=== PATIENT | female | born 1935 | race Caucasian/White ===

== ENCOUNTER 2018-02-01 08:23 | Day surgery (SDC) | payer OTHER ==
[2018-01-29 13:04] LABS: Absolute Lymphocytes (CBC) 1.8 K/uL (0.7-4.9); Absolute Monocytes 0.6 K/uL (0.1-1.3); Absolute Neutrophil 5.6 K/uL (1.8-8.0); Basophils % 1.3 % (0-1.3); Eosinophils % 2.6 % (0-4.4); Hematocrit 36.9 % (36.0-45.0); Lymphocytes % 21.6 % (15.3-44.8); MCH 32.1 pg (27.0-35.0); MCV 99.1 fL (80-100); Monocytes % 7.5 % (3.3-12.3); RBC Red Blood Cell Count 3.72 M/uL (3.86-4.86)
[2018-01-29 13:13] LABS: Potassium 4.3 mEq/L (3.6-5.0)
--- NOTE | 2018-01-29 13:33 | RAD REPORT ---
EXAM DESCRIPTION: RAD - Chest Pa And Lat (2 Views) - 01/29/2018 1:12 pm CLINICAL HISTORY: Preop chest, inguinal hernia repair COMPARISON: February 2017 portable chest, January 2016 CT trauma gram TECHNIQUE: PA and lateral views of the chest were obtained. FINDINGS: The lungs are fibrotic. No acute infiltrates seen. Focal apical scarring on the right apex not clearly different from prior imaging. Mediastinal and hilar regions within normal limits. Hear t size and vasculature within normal limits. Patient has a pronounced left convex scoliotic curvature in the thoracic spine. There is accentuated mid thoracic kyphosis as well. Vertebroplasty changes ar e noted near the thoracolumbar junction. Additional 50% compression fracture deformities are seen in the lower thoracic spine near the vertebroplasty level as well is in the mid thoracic spine. These ch anges are new from 2016 but are not otherwise dated. Patient is diffusely osteopenic. No pleural effu sharona or pneumothorax seen. Aortic calcifications are present. Tortuosity is present accentuated by t he scoliosis. IMPRESSION: Scattered fibrotic lung pattern with no acute cardiopulmonary finding. Apical pleural and parenchymal scarring on the right are stable findings. Osteopenic and degenerative bony changes are present. Mid thoracic and lower thoracic compression fra cture deformities are present new from 2016 but not otherwise aged.
--- NOTE | 2018-01-29 13:37 | EKG ---
Test Date: 2018-01-29 Test Time: 12:18:36 Java Lead Developer: FOREST MEASUREMENT RESULTS: Intervals: Rate: 61 DC: 152 QRSD: 86 QT: 474 QTc: 477 [place]: P: 67 DC: 152 QRS: 77 T: 71 INTERPRETIVE STATEMENTS: Sinus rhythm with premature atrial complexes Otherwise normal ECG Compared to ECG 03/29/2017 23:50:34 Incomplete right bundle-branch block no longer present ST (T wave) deviation no longer present Electronically Signed On 01-29-18 13:36:38 CDT by Jared Bourgeois
[2018-02-01] MEDS ORDERED: Ringers Lactate 1,000 ML IV ONE (09:59)
[2018-02-01] MEDS ORDERED: CEFAZOLIN/SWI 1gm 1 GM/10 ML SYR ONE (10:00)
[2018-02-01] MEDS ORDERED: BUPIVACAINE 0.5% PF 10 ML VIAL ONE (11:06)
[2018-02-01] MEDS ORDERED: FENTANYL CITR 100 MCG/2 ML ONE (11:13)
[2018-02-01] MEDS ORDERED: PROPOFOL 200 MG/20 ML VIAL IV ONE (11:13)
[2018-02-01] MEDS ORDERED: EPHEDRINE SULF 50 MG/5 ML SYR ONE (11:35)
[2018-02-01] MEDS ORDERED: NS 0.9% VIAL 10 ML ONE (11:36)
[2018-02-01] MEDS ORDERED: MEPERIDINE HCL 50 MG/ML AMP ONE (12:17)
[2018-02-01] MEDS ORDERED: PROMETHAZINE 25 MG/ML VIAL ONE (12:23)
[2018-02-01] MEDS ORDERED: ONDANSETRON 4 MG/2 ML VIAL ONE (12:58)
[2018-02-01] MEDS ORDERED: HYDROCODONE/APAP 7.5/325 MG TAB ONE (14:04)
[2018-02-01 15:32] VITALS: BP 121/67; TEMP 97.2; O2SAT 97
--- NOTE | 2018-02-01 22:30 | OP ---
Date of Procedure: 02/01/2018 Surgeon: Ed Brooke MD Rehab Aid: NATALIE Morgan Preoperative Diagnosis: Left inguinal hernia. Postoperative Diagnosis: Left inguinal hernia. Procedure: Repair of left inguinal hernia. Estimated Blood Loss: Minimal. Specimen: Hernia sac and round ligament. Finding: As above. Anesthesia: General. Complications: None. Disposition: The patient tolerated the procedure in stable condition and taken to Recovery in good g eneral condition. Procedure In Detail: The patient was brought to the OR and placed in supine position. General anest hesia begun. The patient was prepped and draped in the usual sterile fashion. Marcaine 0.5% was leila lied locally. A 15-blade was used to make a 4 cm oblique incision between the pubic tubercle and the anterior iliac superior spine. Subcutaneous tissue divided. Felice fascia identified and divided. Aponeurosis of the internal mobilized, inferiorly explored to the shelving edge, then opened through the external ring. Ilioinguinal nerve was identified and retracted out of the field of dissection. Round ligament identified, mobilized, and skeletonized and a large indirect sac present. Both of th e hernia sac opened. There was no bowel inside it at this time. High ligation of the sac was done i n the standard fashion with 2-0 Prolene suture ligature and free hand tie. Round ligament segment wa s also resected and sent to Pathology. Then, Marlex mesh plug was placed in the internal ring and Ve rsaTack stapler used to secure the mesh, and then Onlay mesh was placed on the inguinal floor, secure d medially to the pubic tubercle superior to the conjoined tendon and inferior to the shelving edge, laterally to each other and then 2-0 Prolene was used to close the aponeurosis. A 3-0 chromic was us ed to approximate Felice fascia and maria g used to close skin. Sterile dressing was applied. The p atient was awakened and taken to Recovery in good general condition. Discharge Note: The patient will go to Day Surgery and home when stable. Disposition: Home. Condition: Stable. Discharge Instructions: Resume home medications and diet. Activity as tolerated. No heavy lifting. Remove outer dressing in 2 days. Shower. Keep wound clean and dry. Follow up in my office in a w kaibab. Call for appointment. Tylenol No. 3 one tablet p.o. q.4 p.r.n. pain. Ice pack as ordered. MERLENE/DANIEL Voice ID: [id number] Report ID: [id number]
== END 2018-02-01 15:20 | disposition home or self-care (01) ==
LOC: LAB 08:23
PROVIDERS: ATTEND Surgery
PROC: 0YU60JZ Supplement Left Inguinal Region with Synthetic Substitute, Open Approach (ICD-10-PCS; principal; 2018-02-01 11:30)
DX: K40.90 Unilateral inguinal hernia, without obstruction or gangrene, not specified as recurrent (principal); Z85.3 Personal history of malignant neoplasm of breast; Z88.2 Allergy status to sulfonamides
CPT/HCPCS: 36415; 49505; 71046; 80048; 85025; 88302; 93005; J0690; J2175; J2405; J2550; J3010

== ENCOUNTER 2018-05-02 18:44 | Inpatient (IN) | payer OTHER ==
--- OUTSIDE RECORDS SUMMARY | 2018-05-02 18:47 | XMS REPORT | Continuity of Care Document ---
:1935 Author Organization Interface Problems Problem Status Onset Classification Date Comments Source Date Reported UNK Active [facility] 7 Breast Resolved Problem 03/30/2017 [facility] cancer Medications Medication Details Route Status Patient Ordering Order Source Instructions Provider Date propofol Route: IV, Inactive (ANES) Drug form: Lupe Garner INJ, ONCE, Stop date: 03/27/17 8:07:00 CDT ondansetron Route: IV, Inactive (ANES) Drug form: 017 [facility] INJ, ONCE, Stop date: 03/27/17 7:53:00 CDT lidocaine Route: IV, Inactive (ANES) Drug form: [facility] INJ, ONCE, Stop date: 03/27/17 7:53:00 CDT fentaNYL Route: IV, Inactive (ANES) Drug form: Lupe [facility] INJ, ONCE, Stop date: 03/27/17 7:53:00 CDT ceFAZolin Route: IV, Inactive (ANES) Drug form: 017 [facility] INJ, ONCE, Stop date: 03/27/17 7:53:00 CDT Calcium 1,000 mL, Inactive Chloride Rate: 25 017 [facility] 0.0014 MEQ/ML ml/hr, / Potassium Infuse Chloride 0.004 over: 40 MEQ/ML / hr, Route: Sodium IV, Dosing Chloride 0.103 Weight MEQ/ML / 48.324 kg, Sodium Lactate Total 0.028 MEQ/ML Volume: Injectable 1,000, Solution Start date: 03/27/17 7:09:00 CDT, Duration: 30 day, Stop date: 04/26/17 7:08:00 CDT LR 1000 mL INJ Route: IV, Inactive (ANES) Total [facility] Volume: 1,000, Start date: 03/27/17 7:08:00 CDT, Stop date: 03/27/17 8:08:00 CDT acetaminophen- 1 tab, PO, Active codeine #3 as needed 017 [facility] salmon =1 spray, Active calcitonin 200 NASAL, 017 [facility] UNT/ACTUAT Daily, 0 Nasal [place] Refill(s) Allergies, Adverse Reactions, Alerts Substance Category Reaction Severity Reaction Status Date Comments Source type Reported Tape Assertion Allergy to Active substance [facility] Immunizations Immunization Date Given Site Status Last Updated Comments Source Results Order Name Results Value Reference Date Interpretation Comments Source Range CHEM PANEL eGFR 80 03/27 Result Comment: The eGFR is calculated using the CKD-EPI formula. In most young, healthy individuals the eGFR will be >90 mL/ min/1.73m2. The eGFR declines with age. An eGFR of 60-89 may be normal in mL/min/1.7 /2016 some populations, particularly the elderly, for whom the CKD-EPI formula has not been extensively validated. Use of the eGFR is not recommended in the following populations: [facility] 3m2 Individuals with unstable creatinine concentrations, including patients and those with serious co-morbid conditions. Patients with extremes in muscle mass or diet. The data above are obtained from the National Kidney Disease Education Program (NKDEP) which additionally recommends that when the eGFR is used in patients with extremes of body mass index for purposes of drug dosing, the eGFR should be multiplied by the estimated BMI. CHEM PANEL AGAP 8.6 meq/L 10.0 - 03/27 MH 20.0 [facility] CHEM PANEL Calcium Lvl 9.1 mg/dL 8.5 - 10.5 03/27 [facility] CHEM PANEL BUN 22 mg/dL 7 - 22 03/27 [facility] CHEM PANEL Glucose Lvl 98 mg/dL 70 - 99 03/27 [facility] CHEM PANEL Potassium 3.6 meq/L 3.5 - 5.1 03/27 MH Lvl /2016 [facility] CHEM PANEL Sodium Lvl 139 meq/L 135 - 145 03/27 [facility] CHEM PANEL Creatinine 0.71 mg/dL 0.50 - 03/27 MH Lvl 1.40 [facility] CHEM PANEL CO2 26 meq/L 24 - 32 03/27 [facility] CHEM PANEL Chloride Lvl 108 meq/L 95 - 109 03/27 [facility] Spine Spine lumbar Patient Name: ZAC PRATER EDWIN 03/27 - lumbar 2 2 or 3 views /2016 [place] or 3 views DX : 1935; Age: 81 years Female DX MR: [id number] Read by: Bonita Houston MD Dictated Date/time: 03/27/17 08:08 Study: Spine lumbar 2 or 3 views DX 03/27/2017 7:53 AM CDT Electronically Signed by: Bonita Houston MD 03/27/17 08 :09 FINAL REPORT CLINICAL INDICATION: compression fx/l1 kyphoplasty - fluoro time=[id number]/ Dose=32.73mGy/[id number]#4/Or1 COMPARISON: None FINDINGS: Limited fluoroscopic images provided for kyphoplasty of the L1 vertebral body. Refer to operative report for details. SL: [id number] HEMATOLOGY PTT 25.6 s 22.9 - 03/26 MH 35.8 /2016 [facility] HEMATOLOGY PT 12.6 s 12.0 - 03/26 MH 14.7 [facility] INR 0.92 0.85 - 03/26 MH 1.17 [facility] RDW 13.6 % 11.5 - 03/26 MH 14.5 /2016 [facility] MCHC 33.2 g/dL 32.0 - 03/26 MH 36.0 /2016 [facility] MPV 8.5 fL 7.4 - 10.4 03/26 /2016 [facility] Platelet 320 K/CMM 133 - 450 03/26 MH /2016 [facility] Hct 41.1 % 36.0 - 03/26 MH 48.0 /2016 [facility] Hgb 13.6 g/dL 12.0 - 03/26 MH 16.0 /2016 [facility] RBC 4.16 M/CMM 4.20 - 03/26 MH 5.40 /2016 [facility] MCH 32.8 pg 27.0 - 03/26 MH 31.0 /2016 [facility] MCV 98.6 fL 80.0 - 03/26 MH 98.0 /2016 [facility] WBC 9.1 K/CMM 3.7 - 10.4 03/26 /2016 [facility] Monocytes # 0.8 K/CMM 0.0 - 0.8 03/26 [facility] Lymphocytes 1.7 K/CMM 1.0 - 5.5 03/26 MH # /2016 [facility] Segs-Bands # 6.4 K/CMM 1.5 - 8.1 03/26 [facility] HEMATOLOGY Basophils 1.1 % 0.0 - 1.0 03/26 [facility] HEMATOLOGY Eosinophils 2.0 % 0.0 - 4.0 03/26 [facility] HEMATOLOGY Monocytes 8.5 % 2.0 - 12.0 03/26 [facility] HEMATOLOGY Eosinophils 0.2 K/CMM 0.0 - 0.5 03/26 MH # /2017 [facility] HEMATOLOGY Basophils # 0.1 K/CMM 0.0 - 0.2 03/26 [facility] HEMATOLOGY Segs 70.2 % 45.0 - 03/26 MH 75.0 /2016 [facility] HEMATOLOGY Lymphocytes 18.2 % 20.0 - 03/26 40.0 /2016 [facility] URINE AND UA Mucus Few /LPF None Seen 03/26 STOOL /LPF [facility] URINE AND UA CaOx Ignacia Moderate None Seen 03/26 STOOL /HPF /HPF [facility] URINE AND UA Hyal Cast 1 /LPF 0 - 2 03/26 [facility] URINE AND UA Color Celine 03/26 [facility] URINE AND UA WBC 1 /HPF 0 - 5 03/26 [facility] URINE AND UA RBC 3 /HPF 0 - 2 03/26 STOOL [facility] URINE AND UA 2.0 mg/dL 0.1 - 1.0 03/26 [facility] Urobilinogen /2016 URINE AND UA Nitrite Negative Negative 03/26 STOOL [facility] (03/26/17 10:57 AM) URINE AND UA Turbidity Clear Clear 03/26 STOOL [facility] (03/26/17 10:57 AM) URINE AND UA Spec Grav 1.026 <=1.030 03/26 [facility] URINE AND UA Glucose Negative Negative 03/26 [facility] mg/dL mg/dL URINE AND UA Protein 30 mg/dL Negative 03/26 [facility] mg/dL URINE AND UA pH 5.0 5.0 - 8.0 03/26 [facility] URINE AND UA Sq Epi Occasional Few /LPF 03/26 STOOL /LPF [facility] URINE AND UA Leuk Est Negative Negative 03/26 STOOL /2016 [facility] (03/26/17 10:57 AM) URINE AND UA Bili Negative Negative 03/26 [facility] *NA* (03/26/17 10:57 AM) URINE AND UA Ketones Trace Negative 03/26 [facility] mg/dL mg/dL /2016 [facility] URINE AND UA Blood Small Negative 03/26 STOOL /2016 [facility] *ABN* (03/26/17 10:57 AM) Vital Signs Vital Sign Value Date Comments Source Systolic (mm Hg) 134 03/27/2017 [facility] Diastolic (mm Hg) 60 03/27/2017 [facility] Systolic (mm Hg) 135 03/27/2017 [facility] Diastolic (mm Hg) 59 03/27/2017 [facility] Respitory Rate 14 03/27/2017 [facility] Systolic (mm Hg) 135 03/27/2017 [facility] Diastolic (mm Hg) 55 03/27/2017 [facility] Respitory Rate 16 03/27/2017 [facility] Respitory Rate 16 03/27/2017 [facility] Heart Rate 74 03/26/2017 [facility] Temperature Oral (F) 98 F 03/26/2017 [facility] BMI Calculated 20.81 03/26/2017 [facility] Weight 48.324 03/26/2017 [facility] Height 152.4 cm 03/26/2017 [facility] Encounters Location Location Encounter Encounter Reason Attending ADM DC Status Source Details Type Number For Provider Date Date Visit [id number] Aneudy 03/27 03/27 [facility] /2016 [facility] Procedures Procedure Code Date Perfomer Comments Source Cataract surgery [id number] [facility] Hernia repair [id number] [facility] Lumpectomy of [id number] [facility] breast
--- OUTSIDE RECORDS SUMMARY | 2018-05-02 18:47 | XMS REPORT | Summary of Care ---
:1935 Author Organization [facility] Address [address] [address], [place] [address]- Encounter HQ Jamie(MAIKOL) [id number] Date(s): 03/27/17 - 03/27/17 [facility] [address] [place] [address]- [phone] Discharge Disposition: Home or Self Care Attending Physician: Aneudy Morrison MD Referring Physician: Aneudy Morrison MD Vital Signs Most recent to oldest 1 2 3 [Reference Range]: Height 152.4 cm (03/26/17 9:52 AM) Temperature Oral [96.4-99.1 98 DegF DegF] (03/26/17 9:52 AM) Blood Pressure [90-140/60-90 134/60 mmHg 135/59 mmHg 135/55 mmHg mmHg] (03/27/17 8:45 AM) (03/27/17 8:30 AM) (03/27/17 8:15 AM) Respiratory Rate [14-20 BRMIN] 14 BRMIN 16 BRMIN 16 BRMIN (03/27/17 8:30 AM) (03/27/17 8:15 AM) (03/27/17 8:00 AM) Peripheral Pulse Rate [60-100 74 bpm bpm] (03/26/17 9:52 AM) Weight 48.324 kg (03/26/17 9:52 AM) Body Mass Index 20.81 m2 (03/26/17 9:52 AM) Problem List Condition Effective Dates Status Health Status Informant Breast cancer(Confirmed) Resolved Allergies, Adverse Reactions, Alerts Substance Reaction Severity Status Tape Active Medications acetaminophen-codeine #3 1 tab, PO, as needed Start Date: 03/26/17 Status: Orderedcalcitonin 200 intl units/inh nasal spray =1 spray, NASAL, Daily, 0 Refill(s) Start Date: 03/26/17 Status: OrderedceFAZolin (ANES) Route: IV, Drug form: INJ, ONCE, Stop date: 03/27/17 7:53:00 CDT Start Date: 03/27/17 Stop Date: 03/27/17 Status: CompletedfentaNYL (ANES) Route: IV, Drug form: INJ, ONCE, Stop date: 03/27/17 7:53:00 CDT Start Date: 03/27/17 Stop Date: 03/27/17 Status: CompletedLactated Ringers Injection IV 1000 mL 1,000 mL, Rate: 25 ml/hr, Infuse over: 40 hr, Route: IV, Dosing Weight 48.324 kg , Total Volume: 1,000, Start date: 03/27/17 7:09:00 CDT, Duration: 30 day, Stop date: 04/26/17 7:08:00 CDT Start Date: 03/27/17 Stop Date: 03/27/17 Status: Discontinuedlidocaine (ANES) Route: IV, Drug form: INJ, ONCE, Stop date: 03/27/17 7:53:00 CDT Start Date: 03/27/17 Stop Date: 03/27/17 Status: CompletedLR 1000 mL INJ (ANES) Route: IV, Total Volume: 1,000, Start date: 03/27/17 7:08:00 CDT, Stop date: 8:08:00 CDT Start Date: 03/27/17 Stop Date: 03/27/17 Status: Completedondansetron (ANES) Route: IV, Drug form: INJ, ONCE, Stop date: 03/27/17 7:53:00 CDT Start Date: 03/27/17 Stop Date: 03/27/17 Status: Completedpropofol (ANES) Route: IV, Drug form: INJ, ONCE, Stop date: 03/27/17 8:07:00 CDT Start Date: 03/27/17 Stop Date: 03/27/17 Status: Completed Results ELECTROLYTES Most recent to oldest [Reference Range]: 1 Sodium Lvl [135-145 mEq/L] 139 mEq/L (03/27/17 6:26 AM) Potassium Lvl [3.5-5.1 mEq/L] 3.6 mEq/L (7/28/17 6:26 AM) Chloride Lvl [95-109 mEq/L] 108 mEq/L (03/27/17 6:26 AM) CO2 [24-32 mEq/L] 26 mEq/L (03/27/17 6:26 AM) AGAP [10.0-20.0 mEq/L] 8.6 mEq/L *LOW* (03/27/17 6:26 AM) CHEM PANEL Most recent to oldest [Reference Range]: 1 Creatinine Lvl [0.50-1.40 mg/dL] 0.71 mg/dL (03/27/17 6:26 AM) eGFR 80 mL/min/1.73m2 1 *NA* (03/27/17 6: AM) BUN [7-22 mg/dL] 22 mg/dL (03/27/17 6:26 AM) Glucose Lvl [70-99 mg/dL] 98 mg/dL (03/27/17 6:26 AM) Calcium Lvl [8.5-10.5 mg/dL] 9.1 mg/dL (03/27/17 6:26 AM) 1Result Comment: The eGFR is calculated using the CKD-EPI formula. In most young , healthy individualsthe eGFR will be >90 mL/min/1.73m2. The eGFR declines with age. An eGFR of 60-89 may be normal in some populations, particularly the elderly, for whom the CKD-EPI formula has not been extensively validated. Use of the eGFR is not recommended in the following populations: Individuals with unstable creatinine concentrations, including patients and those with serious co-morbid conditions. Patients with extremes in muscle mass or diet. The data above are obtained from the National Kidney Disease Education Program ( NKDEP) which additionally recommends that when the eGFR is used in patients with extremes of body mass index for purposesof drug dosing, the eGFR should be multiplied by the estimated BMI.URINE AND STOOL Most recent to oldest [Reference Range]: 1 UA Turbidity [Clear] Clear (03/26/17 10:57 AM) UA Color Celine *NA* (03/26/17 10:57 AM) UA pH [5.0-8.0] 5.0 (03/26/17 10:57 AM) UA Spec Grav [<=1.030] 1.026 (03/26/17 10:57 AM) UA Glucose [Negative mg/dL] Negative mg/dL *NA* (03/26/17 10:57 AM) UA Blood [Negative] Small *ABN* (03/26/17 10:57 AM) UA Ketones [Negative mg/dL] Trace mg/dL *ABN* (03/26/17 10:57 AM) UA Protein [Negative mg/dL] 30 mg/dL *ABN* (03/26/17 10:57 AM) UA Urobilinogen [0.1-1.0 mg/dL] 2.0 mg/dL *HI* (03/26/17 10:57 AM) UA Bili [Negative] Negative *NA* (03/26/17 10:57 AM) UA Leuk Est [Negative] Negative (03/26/17 10:57 AM) UA Nitrite [Negative] Negative (03/26/17 10:57 AM) UA WBC [0-5 /HPF] 1 /HPF (03/26/17 10:57 AM) UA RBC [0-2 /HPF] 3 /HPF *HI* (03/26/17 10:57 AM) UA Sq Epi [Few /LPF] Occasional /LPF *NA* (03/26/17 10:57 AM) UA Hyal Cast [0-2 /LPF] 1 /LPF (03/26/17 10:57 AM) UA CaOx Ignacia [None Seen /HPF] Moderate /HPF *ABN* (03/26/17 10:57 AM) UA Mucus [None Seen /LPF] Few /LPF *NA* (03/26/17 10:57 AM) HEMATOLOGY Most recent to oldest [Reference Range]: 1 WBC [3.7-10.4 K/CMM] 9.1 K/CMM (03/26/17 10:57 AM) RBC [4.20-5.40 M/CMM] 4.16 M/CMM *LOW* (03/26/17 10:57 AM) Hgb [12.0-16.0 g/dL] 13.6 g/dL (03/26/17 10:57 AM) Hct [36.0-48.0 %] 41.1 % (03/26/17 10:57 AM) MCV [80.0-98.0 fL] 98.6 fL *HI* (03/26/17 10:57 AM) MCH [27.0-31.0 pg] 32.8 pg *HI* (03/26/17 10:57 AM) MCHC [32.0-36.0 g/dL] 33.2 g/dL (03/26/17 10:57 AM) RDW [11.5-14.5 %] 13.6 % (03/26/17 10:57 AM) Platelet [133-450 K/CMM] 320 K/CMM (03/26/17 10:57 AM) MPV [7.4-10.4 fL] 8.5 fL (03/26/17 10:57 AM) Segs [45.0-75.0 %] 70.2 % (03/26/17 10:57 AM) Lymphocytes [20.0-40.0 %] 18.2 % *LOW* (03/26/17 10:57 AM) Monocytes [2.0-12.0 %] 8.5 % (03/26/17 10:57 AM) Eosinophils [0.0-4.0 %] 2.0 % (03/26/17 10:57 AM) Basophils [0.0-1.0 %] 1.1 % *HI* (03/26/17 10:57 AM) Segs-Bands # [1.5-8.1 K/CMM] 6.4 K/CMM (03/26/17 10:57 AM) Lymphocytes # [1.0-5.5 K/CMM] 1.7 K/CMM (03/26/17 10:57 AM) Monocytes # [0.0-0.8 K/CMM] 0.8 K/CMM (03/26/17 10:57 AM) Eosinophils # [0.0-0.5 K/CMM] 0.2 K/CMM (03/26/17 10:57 AM) Basophils # [0.0-0.2 K/CMM] 0.1 K/CMM (03/26/17 10:57 AM) PT [12.0-14.7 seconds] 12.6 seconds (03/26/17 10:57 AM) INR [0.85-1.17] 0.92 (03/26/17 10:57 AM) PTT [22.9-35.8 seconds] 25.6 seconds (03/26/17 10:57 AM) Immunizations No data available for this section Procedures Procedure Date Related Diagnosis Body Site Cataract surgery Hernia repair Lumpectomy of breast Social History Social History Type Response Substance Abuse Use: None. Alcohol Never Smoking Status Never smoker; Lives with someone who smokes; Cigarette Smoking Last 365 Days No; Reg Smoking Cessation Counseling No Assessment and Plan No data available for this section
[2018-05-02] MEDS ORDERED: MORPHINE 4 MG/ML SYR ONE (19:34)
[2018-05-02] MEDS ORDERED: ONDANSETRON 4 MG/2 ML VIAL ONE ×2 (19:34→21:02)
[2018-05-02 20:05] LABS: Absolute Lymphocytes (CBC) 1.1 K/uL (0.7-4.9); Absolute Monocytes 0.6 K/uL (0.1-1.3); Absolute Neutrophil 9.3 K/uL (1.8-8.0); Basophils % 0.7 % (0-1.3); Eosinophils % 1.2 % (0-4.4); Lymphocytes % 9.7 % (15.3-44.8); MCH 33.3 pg (27.0-35.0); MCV 99.1 fL (80-100); MPV 8.2 fL (7.6-11.3); Monocytes % 5.1 % (3.3-12.3); RBC Red Blood Cell Count 3.53 M/uL (3.86-4.86)
[2018-05-02] MEDS ORDERED: HYDROMORPHONE HCL 1 MG/ML INJ ONE ×2 (20:10→20:25)
[2018-05-02 20:13] LABS: Protime INR 0.95
[2018-05-02 20:22] LABS: Albumin 3.6 g/dL (3.4-5.0); Bilirubin Total 0.5 mg/dL (0.2-1.0); Potassium 3.7 mmol/L (3.5-5.1); Protein, Total 7.3 g/dL (6.4-8.2)
--- NOTE | 2018-05-02 21:11 | RAD REPORT ---
EXAM DESCRIPTION: RAD - Pelvis - 05/02/2018 8:30 pm CLINICAL HISTORY: Pelvic pain status post fall FINDINGS: Moderately to markedly displaced subcapital fracture involves the left femur. No dislocati on is seen
--- NOTE | 2018-05-02 21:11 | RAD REPORT ---
EXAM DESCRIPTION: RAD - Hip Left 2 View - 05/02/2018 8:30 pm CLINICAL HISTORY: Left hip pain status post injury FINDINGS: Moderately to markedly displaced subcapital fracture involves the left femur. No dislocati on is seen
[2018-05-02] MEDS ORDERED: MAGNESIUM HYDROXIDE 8% 30 ML PO PRN (21:14)
--- NOTE | 2018-05-02 21:15 | EDPHYS ---
Physician Documentation [facility] Name: Piper Magaña Age: 82 yrs Sex: Female : 1935 Arrival Date: 05/02/2018 Time: 18:46 Bed 15 Private MD: ED Physician Louis Berrios HPI: 05/03 05:28 This 82 yrs old Female presents to ER via Ambulatory with complaints of Fall tw4 Injury. 05:28 Details of fall: The patient fell from an upright position, while standing. Onset: The tw4 symptoms/episode began/occurred today. Associated injuries: The patient sustained left hip. Severity of symptoms: At their worst the symptoms were moderate, in the emergency department the symptoms are unchanged. The patient has not experienced similar symptoms in the past. Historical: - Allergies: 05/02 18:52 Sulfa (Sulfonamide Antibiotics); hj - Home Meds: 18:52 acetaminophen-codeine 300-30 mg Oral tab 1 tab as needed [Active]; hj - PMHx: 18:52 Osteoporosis; spine compression fx; hj - PSHx: 18:52 back surg; hj - Immunization history:: Adult Immunizations unknown. - Social history:: Smoking status: Patient/guardian denies using tobacco, Patient/guardian denies using alcohol. - Immunization history: Last tetanus immunization: unknown. - Ebola Screening: : Patient negative for fever greater than or equal to 101.5 degrees Fahrenheit, and additional compatible Ebola Virus Disease symptoms Patient denies exposure to infectious person Patient denies travel to an Ebola-affected area in the 21 days before illness onset. ROS: 05/03 05:28 Constitutional: Negative for fever, chills, and weight loss, Eyes: Negative for injury, tw4 pain, redness, and discharge, Cardiovascular: Negative for chest pain, palpitations, and edema, Respiratory: Negative for shortness of breath, cough, wheezing, and pleuritic chest pain, Abdomen/GI: Negative for abdominal pain, nausea, vomiting, diarrhea, and constipation, Back: Negative for injury and pain. Neuro: Negative for headache, weakness, numbness, tingling, and seizure. Exam: 05:28 Head/Face: Normocephalic, atraumatic. Chest/axilla: Normal chest wall appearance and tw4 motion. Nontender with no deformity. No lesions are appreciated. Cardiovascular: Regular rate and rhythm with a normal S1 and S2. No gallops, murmurs, or rubs. Normal PMI, no JVD. No pulse deficits. Respiratory: Lungs have equal breath sounds bilaterally, clear to auscultation and percussion. No rales, rhonchi or wheezes noted. No increased work of breathing, no retractions or nasal flaring. Abdomen/GI: Soft, non-tender, with normal bowel sounds. No distension or tympany. No guarding or rebound. No evidence of tenderness throughout. 05:28 Constitutional: The patient appears in obvious distress, moderately distressed, in obvious pain. 05:28 Musculoskeletal/extremity: Extremities: noted in the left leg: decreased ROM, deformity, pain, Circulation is intact in all extremities. Severe pain noted. Compartment Syndrome exam of affected extremity: is normal. no numbness, no tingling, no sensation deficit, no palor, no weak pulses. Vital Signs: 05/02 18:52 BP 162 / 106; Pulse 81; Resp 18; Temp 98.1(TE); Pulse Ox 100% on R/A; Weight 44.45 kg; hj Height 5 ft. 0 in. (152.40 cm); Pain 10/10; 19:15 BP 144 / 124; Pulse 80; Resp 18; Pulse Ox 98% on R/A; ea 20:30 BP 145 / 72; Pulse 75; Resp 18; Pulse Ox 98% ; ea 21:30 BP 137 / 68; Pulse 86; Resp 18; Pulse Ox 98% ; ea 22:47 BP 145 / 70; Pulse 78; Resp 18; Temp 97.8; Pulse Ox 98% ; Pain 5/10; ea 18:52 Body Mass Index 19.14 (44.45 kg, 152.40 cm) Ideal Coma Score: 18:52 Eye Response: spontaneous(4). Verbal Response: oriented(5). Motor Response: obeys commands(6). Total: 15. 19:15 Eye Response: spontaneous(4). Verbal Response: oriented(5). Motor Response: obeys ea commands(6). Total: 15. 20:30 Eye Response: spontaneous(4). Verbal Response: oriented(5). Motor Response: obeys ea commands(6). Total: 15. 21:30 Eye Response: spontaneous(4). Verbal Response: oriented(5). Motor Response: obeys ea commands(6). Total: 15. 22:47 Eye Response: spontaneous(4). Verbal Response: oriented(5). Motor Response: obeys ea commands(6). Total: 15. Trauma Score (Adult): 18:52 Eye Response: spontaneous(1); Verbal Response: oriented(1); Motor Response: obeys hj commands(2); Systolic BP: > 89 mm Hg(4); Respiratory Rate: 10 to 29 per min(4); Marcia Score: 15; Trauma Score: 12 MDM: 19:07 Patient medically screened. tw4 05/03 05:28 Differential diagnosis: closed head injury, contusion, fracture. Data reviewed: vital tw4 signs, nurses notes. Data interpreted: alarm security or surveillance monitor: rhythm is normal sinus rhythm, Pulse oximetry: Interpretation: normal. Counseling: I had a detailed discussion with the patient and/or guardian regarding: the historical points, exam findings, and any diagnostic results supporting the discharge/admit diagnosis, the presence of at least one elevated blood pressure reading (>120/80) during this emergency department visit. Medication response: morphine partially relieved the patient's pain. Response to treatment: the patient's symptoms have markedly improved after treatment, and as a result, I will admit patient, administer pain medication, Dilaudid. Physician consultation: Bruna Summers MD and will see patient in inpatient room, would like consultation with Dr. Cali/W DR CE HERNANDEZ WHO WILL SEE THE PT IN THE AM. 05/02 19:29 Order name: CBC with Diff tw4 05/02 19:29 Order name: CMP tw4 05/02 19:29 Order name: PT-INR tw4 05/02 19:29 Order name: Ptt, Activated tw4 05/02 21:17 Order name: CBC with Automated Diff EDMS 05/02 21:17 Order name: CBC with Automated Diff EDMS 05/02 21:17 Order name: Comprehensive Metabolic Panel EDMS 05/02 21:17 Order name: Comprehensive Metabolic Panel EDMS 05/02 21:17 Order name: Magnesium EDMS 05/02 21:17 Order name: Magnesium EDMS 05/02 21:17 Order name: Phosphorus EDMS 05/02 21:17 Order name: Phosphorus EDMS 05/02 21:17 Order name: Protime (+INR) EDMS 05/02 21:17 Order name: Protime (+INR) EDMS 05/02 19:31 Order name: Pelvis XRAY tw4 05/02 19:31 Order name: Hip Left 2 View XRAY tw4 05/02 21:17 Order name: CONS Physician Consult EDMS 05/02 21:17 Order name: NPO EDMS 05/02 21:17 Order name: PTT, Activated Partial Thromb EDMS 05/02 21:17 Order name: PTT, Activated Partial Thromb EDMS Administered Medications: 05/02 19:47 Drug: morphine 4 mg Route: IVP; Site: left antecubital; ea 20:05 Follow up: Response: No adverse reaction; Pain is unchanged, physician notified ea 19:48 Drug: Zofran 4 mg Route: IVP; Site: left antecubital; ea 20:27 Follow up: Response: No adverse reaction ea 20:11 Drug: Dilaudid 1 mg Route: IVP; Site: left antecubital; ea 20:55 Follow up: Response: No adverse reaction; Pain is unchanged, physician notified ea 21:00 Drug: Dilaudid 1 mg Route: IVP; Site: left forearm; ea 22:26 Follow up: Response: No adverse reaction; Pain is decreased ea 21:00 Drug: Zofran 4 mg Route: IVP; Site: left forearm; ea 22:26 Follow up: Response: No adverse reaction; Marked relief of symptoms ea Disposition: 05/02/18 21:14 Hospitalization ordered by Bruna Summers for Inpatient Admission. Preliminary diagnosis is Intertrochanteric fracture of femur. - Bed requested for Telemetry/MedSurg (Inpatient). - Status is Inpatient Admission. ea - Condition is Stable. - Problem is new. - Symptoms have improved. UTI on Admission? No Signatures: Dispatcher [employer] EDMN Lenny Moore RN RN la1 Vikash Anne RN Heidi Arana RN RN ea Wadley, Terrence, MD MD tw4 Corrections: (The following items were deleted from the chart) 21:24 21:14 Hospitalization Ordered by Bruna Summers MD for Inpatient Admission. Preliminary la1 diagnosis is Intertrochanteric fracture of femur. Bed requested for Telemetry/MedSurg (Inpatient). Status is Inpatient Admission. Condition is Stable. Problem is new. Symptoms have improved. UTI on Admission? No. tw4 23:12 21:24 05/02/2018 21:14 Hospitalization Ordered by Bruna Summers MD for Inpatient ea Admission. Preliminary diagnosis is Intertrochanteric fracture of femur. Bed requested for Telemetry/MedSurg (Inpatient). Status is Inpatient Admission. Condition is Stable. Problem is new. Symptoms have improved. UTI on Admission? No. la1
--- NOTE | 2018-05-02 21:15 | ER ---
Nurse's Notes [facility] Name: Piper Magaña Age: 82 yrs Sex: Female : 1935 Arrival Date: 05/02/2018 Time: 18:46 Bed 15 Private MD: Diagnosis: Intertrochanteric fracture of femur Presentation: 05/02 18:46 Presenting complaint: EMS states: was at home sitting on a couch, when she stood up, pt hj fell and hurt her L side, L hip, L knee; 22 g L forearm, fentanyl, 50 mcg; 1814; 2nd dose 1824;. Transition of care: patient was not received from another setting of care. Onset of symptoms was May 02, 2018. Risk Assessment: Do you want to hurt yourself or someone else? Patient reports no desire to harm self or others. Initial Sepsis Screen: Does the patient meet any 2 criteria? No. Patient's initial sepsis screen is negative. Does the patient have a suspected source of infection? No. Patient's initial sepsis screen is negative. Care prior to arrival: Medication(s) given: fentanyl 100 mcg; total dose; IV initiated. 22 GA, in the left forearm. 18:46 Method Of Arrival: Ambulatory 18:46 Acuity: TRACY 4 18:46 Mechanism of Injury: Fall. Trauma event details: Injury occurred in the county [facility], Injury occurred: at home. Injury occurred: May 02, 2018. Triage Assessment: 18:55 General: Appears in no apparent distress. uncomfortable, Behavior is cooperative, hj appropriate for age, crying. Pain: Complains of pain in L leg, L hip, L knee. Trauma Activation: Not Applicable Physician: ED Physician; Name: ; Notified At: ; Arrived At: Physician: General Surgeon; Name: ; Notified At: ; Arrived At: Physician: Radiology; Name: ; Notified At: ; Arrived At: Physician: Respiratory; Name: ; Notified At: ; Arrived At: Physician: Lab; Name: ; Notified At: ; Arrived At: Historical: - Allergies: 18:52 Sulfa (Sulfonamide Antibiotics); hj - Home Meds: 18:52 acetaminophen-codeine 300-30 mg Oral tab 1 tab as needed [Active]; - PMHx: 18:52 Osteoporosis; spine compression fx; hj - PSHx: 18:52 back surg; hj - Immunization history:: Adult Immunizations unknown. - Social history:: Smoking status: Patient/guardian denies using tobacco, Patient/guardian denies using alcohol. - Immunization history: Last tetanus immunization: unknown. - Ebola Screening: : Patient negative for fever greater than or equal to 101.5 degrees Fahrenheit, and additional compatible Ebola Virus Disease symptoms Patient denies exposure to infectious person Patient denies travel to an Ebola-affected area in the 21 days before illness onset. Screenin:52 Abuse screen: Denies threats or abuse. Denies injuries from another. Nutritional hj screening: No deficits noted. Tuberculosis screening: No symptoms or risk factors identified. Fall Risk None identified. Primary Survey: 18:46 A: Airway: patent, No supplemental oxygen in use on arrival. Oral cavity: clear, gag hj reflex present, Trachea midline. Breathing/Chest: Respiratory pattern: regular, Respiratory effort: spontaneous, unlabored, Breath sounds: clear, diminished, Chest inspection: symmetrical rise and fall of the chest. Circulation: Cardiac rhythm: sinus rhythm Heart tones present. Pulses: palpable right radial artery, right posterior tibial artery, left radial artery and left posterior tibial artery. Skin color: pink, Skin temperature: warm, dry. Disability Alert. 18:55 Reassessment Airway Airway Patent Oxygen No O2 Oral cavity Clear +Gag reflex Trachea hj Midline Breathing/Chest Respiratory pattern Regular Respiratory effort Spontaneous Unlabored Breath sounds Clear Chest inspection Symmetrical Circulation Heart rhythm Sinus rhythm Heart tones Present Pulses Palpable Color [place] Temperature Warm Dry Disability Alert. Secondary Survey: 18:46 HEENT: No deficits noted. Gastrointestinal: No deficits noted. : No signs and/or hj symptoms were reported regarding the genitourinary system. Musculoskeletal: Reports pain in L knee, L hip, L leg. Assessment: 18:46 Reassessment: see triage for assessment;. hj 19:05 General: Appears uncomfortable, Behavior is restless. Pain: Complains of pain in pelvis ea and medial aspect of left thigh Pain radiates to left leg Pain currently is 9 out of 10 on a pain scale. Quality of pain is described as aching. Neuro: Level of Consciousness is awake, alert, obeys commands, Oriented to person, place, time, situation. Cardiovascular: Heart tones S1 S2 present Patient's skin is warm and dry. Respiratory: Airway is patent Respiratory effort is even, unlabored, Respiratory pattern is regular, symmetrical, Breath sounds are clear bilaterally. GI: No signs and/or symptoms were reported involving the gastrointestinal system. : No signs and/or symptoms were reported regarding the genitourinary system. Derm: Skin is pink, warm \T\ dry. Musculoskeletal: Reports pain in left leg. Musculoskeletal: Capillary refill < 3 seconds, in bilateral toes. Reports. 19:50 Reassessment: Patient and/or family updated on plan of care and expected duration. Pain ea level reassessed. Patient is alert, oriented x 3, equal unlabored respirations, skin warm/dry/pink. Pt complaining of pain, provider notified, medication order obtained. 20:20 Reassessment: Patient and/or family updated on plan of care and expected duration. Pain ea level reassessed. Patient is alert, oriented x 3, equal unlabored respirations, skin warm/dry/pink. Pt complaining of pain, provider notified, medication order obtained, medication administered, pt tolerated well. 21:00 Reassessment: Patient and/or family updated on plan of care and expected duration. Pain ea level reassessed. Pt complaining of pain, provider notified, medication order obtained, medication administered. Pt tolerated well. 22:28 Reassessment: Patient and/or family updated on plan of care and expected duration. Pain ea level reassessed. Patient is alert, oriented x 3, equal unlabored respirations, skin warm/dry/pink. Report called to Carol on fourth floor. Vital Signs: 18:52 BP 162 / 106; Pulse 81; Resp 18; Temp 98.1(TE); Pulse Ox 100% on R/A; Weight 44.45 kg; Height 5 ft. 0 in. (152.40 cm); Pain 10/10; 19:15 BP 144 / 124; Pulse 80; Resp 18; Pulse Ox 98% on R/A; ea 20:30 BP 145 / 72; Pulse 75; Resp 18; Pulse Ox 98% ; ea 21:30 BP 137 / 68; Pulse 86; Resp 18; Pulse Ox 98% ; ea 22:47 BP 145 / 70; Pulse 78; Resp 18; Temp 97.8; Pulse Ox 98% ; Pain 5/10; ea 18:52 Body Mass Index 19.14 (44.45 kg, 152.40 cm) [place] Coma Score: 18:52 Eye Response: spontaneous(4). Verbal Response: oriented(5). Motor Response: obeys hj commands(6). Total: 15. 19:15 Eye Response: spontaneous(4). Verbal Response: oriented(5). Motor Response: obeys ea commands(6). Total: 15. 20:30 Eye Response: spontaneous(4). Verbal Response: oriented(5). Motor Response: obeys ea commands(6). Total: 15. 21:30 Eye Response: spontaneous(4). Verbal Response: oriented(5). Motor Response: obeys ea commands(6). Total: 15. 22:47 Eye Response: spontaneous(4). Verbal Response: oriented(5). Motor Response: obeys ea commands(6). Total: 15. Trauma Score (Adult): 18:52 Eye Response: spontaneous(1); Verbal Response: oriented(1); Motor Response: obeys hj commands(2); Systolic BP: > 89 mm Hg(4); Respiratory Rate: 10 to 29 per min(4); Marcia Score: 15; Trauma Score: 12 ED Course: 18:46 Patient arrived in ED. hj 18:46 Patient has correct armband on for positive identification. Bed in low position. Call light in reach. Side rails up X2. 18:46 Patient maintains SpO2 saturation greater than 95% on room air. hj 18:46 Thermoregulation: warm blanket given to patient. hj 18:51 Triage completed. hj 18:53 Arm band placed on. hj 19:00 Vikash Anne RN is Primary Nurse. hj 19:00 Report given to ANSHUL Gordon. hj 19:07 Louis Berrios MD is Attending Physician. tw4 19:45 Benjamin cath inserted, using sterile technique, 16 Fr., by me, balloon inflated, to ea gravity drainage, urine specimen collected. 19:47 Heidi Long, ANSHUL is Primary Nurse. ea 19:55 Initial lab(s) drawn, by me, sent to lab. cc 20:27 X-ray completed. Portable x-ray completed in exam room. Patient tolerated procedure jb2 well. 20:28 Pelvis XRAY In Process Unspecified. EDMS 20:28 Hip Left 2 View XRAY In Process Unspecified. EDMS 21:13 Bruna Summers MD is Hospitalizing Provider. tw4 21:46 No provider procedures requiring assistance completed. Patient admitted, IV remains in ea place. Administered Medications: 19:47 Drug: morphine 4 mg Route: IVP; Site: left antecubital; ea 20:05 Follow up: Response: No adverse reaction; Pain is unchanged, physician notified ea 19:48 Drug: Zofran 4 mg Route: IVP; Site: left antecubital; ea 20:27 Follow up: Response: No adverse reaction ea 20:11 Drug: Dilaudid 1 mg Route: IVP; Site: left antecubital; ea 20:55 Follow up: Response: No adverse reaction; Pain is unchanged, physician notified ea 21:00 Drug: Dilaudid 1 mg Route: IVP; Site: left forearm; ea 22:26 Follow up: Response: No adverse reaction; Pain is decreased ea 21:00 Drug: Zofran 4 mg Route: IVP; Site: left forearm; ea 22:26 Follow up: Response: No adverse reaction; Marked relief of symptoms ea Intake: 22:47 PO: 0ml; Total: 0ml. ea Output: 22:47 Urine: 575ml (Benjamin); Total: 575ml. ea Outcome: 21:14 Decision to Hospitalize by Provider. tw4 22:26 Condition: stable ea 22:26 Instructed on the need for admit. 22:27 Patient's length of stay in the Emergency Department was greater than 2 hours. pt ea admittedPatient's length of stay extended due to 22:29 Admitted to Med/surg accompanied by tech, room 407, with oxygen, with chart, Report ea called to Carol LANDERS 23:12 Patient left the ED. ea Signatures: Dispatcher [employer] EDIL Donato Monahan [place] cc Joaquin, Henry, RN RN hj Antunez, Elena, RN RN ea Wadley, Terrence, MD MD tw4 Corrections: (The following items were deleted from the chart) 22:49 21:30 BP 137 / 68; Pulse 86bpm; Resp 18bpm; Pulse Ox 98% RA; ea ea 22:49 22:27 PO 0, ea ea
[2018-05-02 23:06] VITALS: BMI 19.7
[2018-05-02] MEDS: NA CHLORIDE 0.9% 1,000 ML IV SCH (23:27)
[2018-05-02] MEDS: ONDANSETRON 4 MG/2 ML VIAL IV PRN (23:33)
[2018-05-03 04:25] LABS: Absolute Lymphocytes (CBC) 0.6 K/uL (0.7-4.9); Absolute Monocytes 0.6 K/uL (0.1-1.3); Absolute Neutrophil 13.4 K/uL (1.8-8.0); Basophils % 0.2 % (0-1.3); Lymphocytes % 4.1 % (15.3-44.8); MCH 33.7 pg (27.0-35.0); MCV 98.8 fL (80-100); MPV 8.3 fL (7.6-11.3); Monocytes % 4.1 % (3.3-12.3); RBC Red Blood Cell Count 3.44 M/uL (3.86-4.86)
[2018-05-03 05:09] LABS: Albumin 3.5 g/dL (3.4-5.0); Bilirubin Total 0.7 mg/dL (0.2-1.0); Phosphorus 3.6 mg/dL (2.5-4.9); Potassium 4.6 mmol/L (3.5-5.1); Protein, Total 7.4 g/dL (6.4-8.2)
[2018-05-03] MEDS: HYDROMORPHONE HCL 1 MG/ML INJ IV PRN ×4 (05:14→19:49)
[2018-05-03] MEDS: ONDANSETRON 4 MG/2 ML VIAL IV PRN ×3 (05:15→19:53)
[2018-05-03 05:44] LABS: Blood Morphology Comment NOT SEEN (NOT SEEN); Platelet Estimate ADEQ
--- NOTE | 2018-05-03 07:41 | P.HP ---
Certification for Inpatient Patient admitted to: Inpatient With expected LOS: >2 Midnights Patient will require the following post-hospital care: None Practitioner: I am a practitioner with admitting privileges, knowledge of patient current condition, hospital course, and medical plan of care. Services: Services provided to patient in accordance with Admission requirements found in Title 42 Section 412.3 of the Code of Federal Regulations Patient History Date of Service: 05/02/18 Reason for admission: Displaced subcapital fracture of the left femur History of Present Illness: Patient is an 82-year-old female came into the hospital after falling from the couch. She was taking a nap when she heard the phone ring. She got up from the couch to and fell. She suffered the fracture was not able to get up. She suffered a compression fracture a year ago and at that time was diagnosed with osteoporosis. She does not have many illnesses. She does not take any medications. 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 She tends to be very active at her age. She should be low risk from any cardiopulmonary complications during the perioperative period. Allergies Sulfa (Sulfonamide Antibiotics) Allergy (Intermediate, Verified 05/02/18 23:29) Hives/Rash adhesive tape Allergy (Verified 05/02/18 23:29) Rash Home Medications: NK [No Home Meds] 05/02/18 - Past Medical/Surgical History Has patient received pneumonia vaccine in the past: No Diabetic: No -: Breast Cancer (RT) -: Lumpectomy (1997) -: Hernia Repair ( Rt.Groin) - Family History Father Medical History: Other (see notes) Notes: Lung problems Mother Medical History: Heart disease, Diabetes - Social History Smoking Status: Never smoker Alcohol use: No CD- Drugs: No Caffeine use: Yes Place of Residence: Home Review of Systems 10-point ROS is otherwise unremarkable Physical Examination - Vital Signs Temperature: 97.8 F Blood Pressure: 123/58 Pulse: 97 Respirations: 16 Pulse Ox (%): 100 - Physical Exam General: Alert, In no apparent distress, Oriented x3 HEENT: Atraumatic, PERRLA, Mucous membr. moist/pink, EOMI, Sclerae nonicteric Neck: Supple, 2+ carotid pulse no bruit, No LAD, Without JVD or thyroid abnormality Respiratory: Clear to auscultation bilaterally, Normal air movement Cardiovascular: Regular rate/rhythm, Normal S1 S2, No murmurs Gastrointestinal: Normal bowel sounds, Soft and benign, Non-distended, No tenderness Musculoskeletal: No clubbing, No swelling, Tenderness (Left hip) Integumentary: No rashes Neurological: Normal gait, Normal speech, Normal strength at 5/5 x4 extr, Normal tone, Normal affect Lymphatics: No axilla or inguinal lymphadenopathy - Studies Laboratory Data (last 24 hrs) 05/02/18 19:55: PT 11.2, INR 0.95, APTT 24.1 L 05/02/18 19:55: Sodium 142, Potassium 3.7, BUN 26 H, Creatinine 0.90, Glucose 111 H, Total Bilirubin 0.5, AST 22, ALT 18, Alkaline Phosphatase 106 05/02/18 19:55: WBC 11.2 H, Hgb 11.7 L, Hct 35.0 L, Plt Count 286 Assessment & Plan - Problems (Diagnosis) (1) Subcapital fracture of left femur Current Visit: Yes Status: Acute (2) History of breast cancer Current Visit: Yes Status: Acute - Plan Plan: 1. IV hydration 2. NPO after midnight 3. Patient is low risk from any cardiopulmonary complications. Patient is stable for surgery 4. Monitor hemodynamics closely 5. PT eval after surgery 6. Rehab eval after surgery 7. GI and DVT prophylaxis - Advance Directives Does patient have a Living Will: Yes Does patient have a Durable POA for Healthcare: No - Code Status/Comfort Care Code Status Assessed: Yes Code Status: Full Code Critical Care: No Time Spent Managing PTS Care (In Minutes): 50
[2018-05-03] MEDS ORDERED: PNEUMOCOCCAL VACCINE 0.5 ML IMVAC ONE (08:00)
[2018-05-03] MEDS: NA CHLORIDE 0.9% 1,000 ML IV SCH (09:07)
[2018-05-03] MEDS ORDERED: CEFAZOLIN/SWI 1gm 1 GM/10 ML SYR IVP SCH (09:15)
--- NOTE | 2018-05-03 09:25 | P.CNS ---
Date of Consult: 05/03/18 Requesting Physician: Bruna Summers Chief Complaint: Displaced subcapital fracture of the left femur History of Present Illness: 82Y/O FEMALE UP FROM COUCH TO ANSWER PHONE AND FELL TO BREAK LEFT HIP, SUBCAPITAL NECK FRACTURE. NO HISTORY OF PRIOR FALLS;AWAKENED BY PHONE. BROUGHT TO [facility] ED AND ADMITTED TO BED REST. Allergies Sulfa (Sulfonamide Antibiotics) Allergy (Intermediate, Verified 05/02/18 23:29) Hives/Rash adhesive tape Allergy (Verified 05/02/18 23:29) Rash Home Medications: NK [No Home Meds] 05/02/18 - Past Medical/Surgical History Diabetic: No -: Breast Cancer (RT) -: Lumpectomy (1997) -: Hernia Repair ( Rt.Groin) - Family History Father Medical History: Other (see notes) Notes: Lung problems Mother Medical History: Heart disease, Diabetes - Social History Smoking Status: Never smoker Alcohol use: No CD- Drugs: No Caffeine use: Yes Place of Residence: Home Review of Systems 10-point ROS is otherwise unremarkable Physical Examination Temp Pulse Resp BP Pulse Ox 97.8 F 97 H 16 123/58 L 100 05/03/18 08:03 05/03/18 08:03 05/03/18 08:03 05/03/18 08:03 05/03/18 08:03 General: Alert, Oriented x3 HEENT: Atraumatic, Normocephalic Neck: Supple Respiratory: Normal air movement Cardiovascular: Normal pulses Capillary refill: <2 Seconds Gastrointestinal: Soft and benign, Non-distended Musculoskeletal: Tenderness (MARKED TENDERNESS LEFT HIP WITH ANY MOVEMENT) Integumentary: No rashes, No breakdown Neurological: Sensation intact Urinary: Benjamin catheter External genitalia: Deferred Rectal: Deferred Laboratory Data (last 24 hrs) 05/02/18 19:55: PT 11.2, INR 0.95, APTT 24.1 L 05/02/18 19:55: Sodium 142, Potassium 3.7, BUN 26 H, Creatinine 0.90, Glucose 111 H, Total Bilirubin 0.5, AST 22, ALT 18, Alkaline Phosphatase 106 05/02/18 19:55: WBC 11.2 H, Hgb 11.7 L, Hct 35.0 L, Plt Count 286 Imagings Data: LEFT SUBCAPITAL PROXIMAL FEMUR FRACTRE, DISPLACED - Problems (1) Subcapital fracture of left femur Current Visit: Yes Status: Acute Plan: SCHEDULED FOR INSERTION OF LEFT HIP PROSTHESIS AT ~ 12 N, 05/04/2018. DISCUSSED RISKS AND BENEFITS WITH ALL QUESTIONS ANSWERED. PATIENT AND DAUGHTER HAVE ELECTED TO PROCEED PLANNED. NPO AFTER MIDNIGHT. REGULAR DIET NOW. OK FOR LOVENOX INJECTION THIS AM, WITHHOLD TOMORROW.
--- NOTE | 2018-05-03 13:40 | P.PN ---
Subjective Date of Service: 05/03/18 Chief Complaint: Displaced subcapital fracture of the left femur Pt seen and examined at bedside. Patient currently has no complaints to offer overnight. Case discussed with orthopedics. Plans to have a surgery tomorrow morning. NPO after midnight. Review of Systems 10-point ROS is otherwise unremarkable Physical Examination - Vital Signs Temperature: 98.5 F Blood Pressure: 163/86 Pulse: 73 Respirations: 16 Pulse Ox (%): 97 - Physical Exam General: Alert, In no apparent distress HEENT: Atraumatic, PERRLA, EOMI Neck: Supple, JVD not distended Respiratory: Clear to auscultation bilaterally, Normal air movement Cardiovascular: Regular rate/rhythm, Normal S1 S2 Gastrointestinal: Normal bowel sounds, No tenderness Musculoskeletal: No tenderness Integumentary: No rashes Neurological: Normal speech, Normal tone, Normal affect Lymphatics: No axilla or inguinal lymphadenopathy - Studies Laboratory Data (last 24 hrs) 05/02/18 19:55: PT 11.2, INR 0.95, APTT 24.1 L 05/02/18 19:55: Sodium 142, Potassium 3.7, BUN 26 H, Creatinine 0.90, Glucose 111 H, Total Bilirubin 0.5, AST 22, ALT 18, Alkaline Phosphatase 106 05/02/18 19:55: WBC 11.2 H, Hgb 11.7 L, Hct 35.0 L, Plt Count 286 Medications List Reviewed: Yes Assessment And Plan - Current Problems (Diagnosis) (1) Subcapital fracture of left femur Current Visit: Yes Status: Acute Plan: Patient with left femur fracture. -orthopedics consulted. Appreciated recommendations at this time -patient scheduled for procedure tomorrow. -PT consulted postprocedure. Qualifiers: Encounter type: initial encounter (2) History of breast cancer Current Visit: Yes Status: Chronic Discharge Plan: [facility] Plan to discharge in: 48 Hours - Code Status/Comfort Care Code Status Assessed: Yes Critical Care: No
[2018-05-03] MEDS ORDERED: ENOXAPARIN 30 MG/0.3 ML SQ SCH (18:00)
[2018-05-04] MEDS: NA CHLORIDE 0.9% 1,000 ML IV SCH ×3 (01:18→18:02)
[2018-05-04] MEDS: HYDROMORPHONE HCL 1 MG/ML INJ IV PRN ×2 (04:00→08:57)
[2018-05-04] MEDS: ENOXAPARIN 40 MG/0.4 ML SQ SCH (07:45)
--- NOTE | 2018-05-04 11:43 | P.PN ---
Subjective Date of Service: 05/04/18 Chief Complaint: Displaced subcapital fracture of the left femur Pt seen and examined at bedside. Patient currently has no complaints to offer overnight. Case discussed with orthopedics. Plans to have a surgery today. Has been NPO after midnight. C/o Of pain this AM in the right hip Review of Systems 10-point ROS is otherwise unremarkable Physical Examination - Vital Signs Temperature: 98.4 F Blood Pressure: 132/62 Pulse: 71 Respirations: 16 Pulse Ox (%): 97 - Physical Exam General: Alert, In no apparent distress HEENT: Atraumatic, PERRLA, EOMI Neck: Supple, JVD not distended Respiratory: Clear to auscultation bilaterally, Normal air movement Cardiovascular: Regular rate/rhythm, Normal S1 S2 Gastrointestinal: Normal bowel sounds, No tenderness Musculoskeletal: No tenderness Integumentary: No rashes Neurological: Normal speech, Normal tone, Normal affect Lymphatics: No axilla or inguinal lymphadenopathy - Studies Medications List Reviewed: Yes Assessment And Plan - Current Problems (Diagnosis) (1) Subcapital fracture of left femur Current Visit: Yes Status: Acute Plan: Patient with left femur fracture. -orthopedics consulted. Appreciated recommendations at this time -patient scheduled for procedure today -PT consulted postprocedure. -Inpatient Rehab consult Placed Qualifiers: Encounter type: initial encounter (2) History of breast cancer Current Visit: Yes Status: Chronic - Plan Awaiting Surgical Procedure today. Discharge Plan: Other Plan to discharge in: 48 Hours - Code Status/Comfort Care Code Status Assessed: Yes Critical Care: No
[2018-05-04] MEDS ORDERED: TRANEXAMIC ACID 1,000 MG in NA CHLORIDE 0.9% 50 ML IV ONE (12:00)
[2018-05-04] MEDS ORDERED: Ringers Lactate 1,000 ML IV ONE ×2 (12:05→14:25)
[2018-05-04] MEDS ORDERED: FENTANYL CITR 250 MCG/5 ML ONE (12:11)
[2018-05-04] MEDS ORDERED: ROCURONIUM 50 MG/5 ML VIAL IV ONE (12:11)
[2018-05-04] MEDS ORDERED: PROPOFOL 200 MG/20 ML VIAL IV ONE (12:11)
[2018-05-04] MEDS ORDERED: CEFAZOLIN/SWI 1gm 1 GM/10 ML SYR ONE (12:14)
--- NOTE | 2018-05-04 12:18 | EKG ---
Test Date: 2018-05-04 Test Time: 09:45:35 Business Support Manager: VARSHA MEASUREMENT RESULTS: Intervals: Rate: 93 TX: 136 QRSD: 92 QT: 388 QTc: 482 [place]: P: 73 TX: 136 QRS: 43 T: 53 INTERPRETIVE STATEMENTS: Sinus rhythm with premature atrial complexes Otherwise normal ECG Compared to ECG 01/29/2018 12:18:36 No significant changes Electronically Signed On 05-04-18 12:17:52 CDT by Yaakov Rogers
[2018-05-04] MEDS ORDERED: ONDANSETRON HCL 40 MG/20 ML VIAL ONE (12:31)
[2018-05-04] MEDS: BUPIVACA 0.25%/EPI 0.0005% MDV 50 ML VIAL ONE ×2 (13:30→14:59)
[2018-05-04] MEDS ORDERED: EPHEDRINE SULF 50 MG/10 ML SYR ONE (13:31)
[2018-05-04] MEDS ORDERED: KETOROLAC 30 MG/ML INJ ONE (14:53)
--- NOTE | 2018-05-04 15:22 | P.BOP ---
Preoperative diagnosis: Left subcapital femoral neck fracture Postoperative diagnosis: SAME Primary procedure: INSERTION OF UNIPOLAR HIP PROSTHESIS FOR LEFT HIP FEMORAL NECK FRACTURE Nephrologist: Deborah Miller ([facility]ECESSARY 1ST ASSIST SERVICES THROUGHOUT CASE) Estimated blood loss: 150 mL Specimen: FEMORAL HEAD AND CALCAR FRAGMENTS PLUS SOFT TISSUES DEBRIDED Findings: SUBCAPITAL FRACTRE PROX. FEMORAL NECK Anesthesia: General Complications: None Implants: MELO HIP BALL 47mm;CENTALIZER8.5;SPACER+0;SUMMIT [id number] CEMENTED Fluids & blood products: LEONARDO SIMPLEX, 2 BATCHES IN CEMENT GUN; INJ. 30mL0.25 %MARCAINEwEPI Transferred to: Recovery Room Condition: Good
[2018-05-04] MEDS ORDERED: HYDROCODONE/APAP 5/325 MG TAB PO PRN (15:38)
--- NOTE | 2018-05-04 16:00 | RAD REPORT ---
EXAM DESCRIPTION: RAD - Pelvis - 05/04/2018 3:38 pm CLINICAL HISTORY: Postop left hip prosthesis COMPARISON: May 02 TECHNIQUE: AP imaging of the pelvis was obtained. FINDINGS: Bipolar prosthesis has been placed on the left. Hardware is in good position. Skin maria g are present lateral to the hip joint. No suspicious or unexpected bone or implant finding. IMPRESSION: Left bipolar prosthesis in good position. No suspicious or unexpected finding.
[2018-05-04] MEDS: ONDANSETRON 4 MG/2 ML VIAL IV PRN ×2 (16:18→22:16)
[2018-05-04 17:40] LABS: Hematocrit 31.6 % (36.0-45.0)
[2018-05-04] MEDS: CEFAZOLIN/SWI 1gm 1 GM/10 ML SYR IVP SCH (17:59)
[2018-05-04] MEDS ORDERED: CEFAZOLIN/NS 1gm 1 GM/50 ML BAG IVPB SCH (18:00)
[2018-05-05] MEDS: CEFAZOLIN/SWI 1gm 1 GM/10 ML SYR IVP SCH
--- NOTE | 2018-05-05 01:44 | OP ---
Date of Procedure: 05/04/2018 Surgeon: Bertin Cardenas MD Case Manager Specialist: NATALIE Valencia (gave necessary offset press assistant services throughout case). Postoperative Diagnosis: Left subcapital femoral neck fracture. Postoperative Diagnosis: Left subcapital femoral neck fracture. Primary Procedure: Insertion of unipolar hip prosthesis for left hip femoral neck fracture. Indications: This 82-year-old female suffered a fall with impact to her left hip. The x-ray revealed a subcapital femoral neck fracture, left hip. The patient is aware of risks and benefits and has elected to proceed with insertion of hip prosthesis, left hip subcapital femoral neck fracture. Technique: The patient was taken to the operating room and given a general anesthetic. Time-out was called and all pertinent facts were discussed and it was decided to proceed with the operation as planned. The patient was placed on the operative table in the right lateral position with an axillary roll and all bony prominences padded. Bolsters were placed up against the lumbar spine of the abdomen and pubic ramus to keep her in the transverse plane vertical and perpendicular to the floor. The left lower extremity was placed in traction and prepping was carried out in the usual fashion with Betadine scrub and Betadine solution from the iliac crest down to the ankle and the foot was taken from traction and with the ankle held with a sterile glove DuraPrep was applied to the foot and ankle. Draping was carried out with an impervious stockinette, wrapped with Coban, and the operative site was marked for the incision. Ioban sticky drape was placed completely around the exposed operative site. The incision was made in a curved fashion beginning across the proximal quarter of the femur and angling toward the posterior superior iliac spine. The incision was carried sharply through the skin and subcutaneous tissue down to the fascia georges. The fascia georges was exposed by a centimeter on each side of the incision line and a sharp division was carried out for the fascia georges to the musculotendinous junction with the gluteus tyrel which was split with sharp and blunt dissection. Self-retaining retractors were placed in position and the incision was carried deeper through the external rotators and upper quadratus muscle insertion to the posterior proximal femur. These were tagged as the joint capsule was opened from distally moving proximally. It was carried against the bone with Bovie cutting. The piriformis tendon insertion was divided after a #1 Vicryl was used to tag both the external rotators and the piriformis insertions. These tags were then draped over the posterior margin of the incision to protect the sciatic nerve. The incision once piriformis was released moved in a 90-degree angle from its prior track to move toward the acetabulum making nice exposure of the fracture site. The calcar cutting guide was placed in position. The kristen was made with the cutting Bovie and the level of cut was planned and then the oscillating saw was used to make that cut. The shards of calcar were removed with a rongeur and then a corkscrew was placed in the femoral head. It was levered out of the acetabulum. Acetabulum was uninjured and had no loose bodies within. Two Ray- Felisha sponges were placed in the acetabulum. The calcar retractor was placed in position to lift up the posterior aspect of the calcar from the wound so that the box lining machine operator, canal finder, and trochanteric lateralizer were used in sequence using a T-handle. Reaming was carried out with power to the size 4-5 reamer. Then broaches were used. The size 3 broach was a good fit and it was left in place for trialing with the 0+ neck. The femoral head had been measured and found to be 47 mm in diameter, and that was a good fit with the trial for the hip ball, so that trial was placed on the standard neck fitting on the #3 broach. Reduction was quite stable. The hip could be flexed to 120 degrees and the internal rotation of nearly 90 degrees did not produce subluxation or dislocation. The hip would go to full extension easily and a bicycling motion was made moving knee and hip together. Pistoning did not occur with traction at the knee. At that point, all prosthetic trial components were removed and Simpulse lavage was used to clean the intramedullary canal. An intramedullary plug was placed in position and Simpulse lavage was utilized again. The 8.5 mm centralizer was placed on the tip of the stem. Two batches of Simplex [place] cement were mixed and injected with pressure technique. The size 3 stem, standard for cementing was pushed into position and held there for 18 minutes while the cement set, then the +0 spacer was tapped into position along with a Bowen hip ball 47 mm in diameter. The prosthetic hip was reduced and was quite stable as were the trials. Irrigation was carried out prior to closure with #1 Ethibond repairing the insertion of the piriformis and the external rotators along with the quadratus. #1 Vicryl was used to repair the fascia georges with interrupted sutures. The deep subcu was also closed with #1 Vicryl interrupted sutures. A shallow subcu was closed with 2-0 Vicryl. Skin aniceto were used for the skin with irrigation of normal saline with a Simpulse lavage at each level of closure. Aniceto were used to close the skin and an Aquacel bandage was applied. The patient was placed in an abduction splint and taken to the recovery room with estimated blood lossof 150 mL. As described, the patient had a 47 mm Bowen hip ball, an 8.5 mm centralizer, a spacer +0 for the neck, and a [place] size 3 cemented standard stem. The stem was cemented with 2 batches of [place] Simplex cement with gentamicin, injection was 30 mL of 0.25% Marcaine with epi. The patient was taken to the recovery room in good condition. LEANDER/DANIEL Voice ID: [id number] Report ID: [id number] SRI
[2018-05-05 04:27] LABS: Hematocrit 29.2 % (36.0-45.0)
[2018-05-05] MEDS: NA CHLORIDE 0.9% 1,000 ML IV SCH ×2 (06:46→16:53)
[2018-05-05] MEDS: ENOXAPARIN 40 MG/0.4 ML SQ SCH (08:16)
--- NOTE | 2018-05-05 12:29 | P.PN ---
Subjective Date of Service: 05/05/18 Chief Complaint: Displaced subcapital fracture of the left femur Pt seen and examined at bedside. Patient currently has no complaints to offer overnight. Case discussed with orthopedics. Status post open reduction internal fixation. Knowing well overall. Working with physical therapy this morning. Review of Systems 10-point ROS is otherwise unremarkable Physical Examination - Vital Signs Temperature: 98.9 F Blood Pressure: 150/67 Pulse: 73 Respirations: 18 Pulse Ox (%): 98 - Physical Exam General: Alert, In no apparent distress HEENT: Atraumatic, PERRLA, EOMI Neck: Supple, JVD not distended Respiratory: Clear to auscultation bilaterally, Normal air movement Cardiovascular: Regular rate/rhythm, Normal S1 S2 Gastrointestinal: Normal bowel sounds, No tenderness Musculoskeletal: No tenderness Integumentary: No rashes Neurological: Normal speech, Normal tone, Normal affect Lymphatics: No axilla or inguinal lymphadenopathy - Studies Medications List Reviewed: Yes Assessment And Plan - Current Problems (Diagnosis) (1) Subcapital fracture of left femur Onset Date: 05/04/18 Current Visit: Yes Status: Acute Plan: Patient with left femur fracture. -orthopedics consulted. Appreciated recommendations at this time -S/p ORIF POD # 1 -Restart Lovenox -Inpatient Rehab Consulted. Qualifiers: Encounter type: initial encounter (2) History of breast cancer Current Visit: Yes Status: Chronic - Plan Currently patient is status post procedure. Inpatient rehab consult placed. Patient working with physical therapy. We placement to inpatient rehab at this time. Discharge Plan: Other Plan to discharge in: 48 Hours - Code Status/Comfort Care Code Status Assessed: Yes Critical Care: No
--- NOTE | 2018-05-05 13:05 | P.PN ---
Date of Service: 05/05/18 (POD#1) S: PATIENT COMFORTABLE IN BED WITHPAIN INTENSITY RECORDED 0s. PATIENT DESCRIBES PAIN WITH THERAPY, STOOD THIS AM WITH 5 STEPS AND DID BED EXERCISES. O: AFEBRILE, VSS, HGB 9.8 DOWN FROM 10.5 YEST. AND 11.7 ADMIT. NV EXAM INTACT. FILMS REVIEWED, PROSTHESIS IN EXCELLENT POSITION. A: PATIENT MAKING PROGRESS POD#1. p: CONTINUE MOBILIZATION TOLERATED.
[2018-05-06] MEDS: ACETAMINOPHEN 500 MG TAB PO PRN ×2 (00:16→17:54)
[2018-05-06] MEDS: NA CHLORIDE 0.9% 1,000 ML IV SCH ×3 (01:50→21:04)
[2018-05-06 04:50] LABS: Hematocrit 25.3 % (36.0-45.0)
[2018-05-06] MEDS: ENOXAPARIN 40 MG/0.4 ML SQ SCH (09:31)
--- NOTE | 2018-05-06 14:19 | P.PN ---
Subjective Date of Service: 05/06/18 Chief Complaint: Displaced subcapital fracture of the left femur Pt seen and examined at bedside. Patient currently has no complaints to offer overnight. Case discussed with orthopedics. Status post open reduction internal fixation. Knowing well overall. Working with physical therapy this morning. Review of Systems 10-point ROS is otherwise unremarkable Physical Examination - Vital Signs Temperature: 97.8 F Blood Pressure: 130/60 Pulse: 77 Respirations: 18 Pulse Ox (%): 94 - Physical Exam General: Alert, In no apparent distress HEENT: Atraumatic, PERRLA, EOMI Neck: Supple, JVD not distended Respiratory: Clear to auscultation bilaterally, Normal air movement Cardiovascular: Regular rate/rhythm, Normal S1 S2 Gastrointestinal: Normal bowel sounds, No tenderness Musculoskeletal: No tenderness Integumentary: No rashes Neurological: Normal speech, Normal tone, Normal affect Lymphatics: No axilla or inguinal lymphadenopathy - Studies Medications List Reviewed: Yes Assessment And Plan - Current Problems (Diagnosis) (1) Subcapital fracture of left femur Onset Date: 05/04/18 Current Visit: Yes Status: Acute Plan: Patient with left femur fracture. -orthopedics consulted. Appreciated recommendations at this time -S/p ORIF POD # 2 -Restart Lovenox -Inpatient Rehab Consulted. Qualifiers: Encounter type: initial encounter (2) History of breast cancer Current Visit: Yes Status: Chronic - Plan Currently patient is status post procedure. Inpatient rehab consult placed. Patient working with physical therapy. We placement to inpatient rehab at this time.
--- NOTE | 2018-05-06 17:12 | P.PN ---
Date of Service: 05/06/18 (POD#2) S: PATIENT COMFORTABLE IN BEDSIDE CHAIR, STILL WITH PAIN INTENSITIES RECORDED ALL 0s. PATIENT DESCRIBES PAIN WITH THERAPY, RWW FOR 50' AND DID OT SESSION PLUS BED EXERCISES AFTERWARDS. O: AFEBRILE, VSS, HGB 8.6, NV EXAM INTACT. BANDAGE CLEAN AND DRY. A: PATIENT MAKING PROGRESS POD#2. p: CONTINUE MOBILIZATION TOLERATED.
[2018-05-06] MEDS: DOCUSATE NA 100 MG CAP PO SCH (21:00)
[2018-05-07 05:51] LABS: Hematocrit 25.6 % (36.0-45.0)
[2018-05-07] MEDS: NA CHLORIDE 0.9% 1,000 ML IV SCH ×2 (10:20→21:20)
[2018-05-07] MEDS: DOCUSATE NA 100 MG CAP PO SCH ×2 (10:22→21:18)
[2018-05-07] MEDS: ENOXAPARIN 40 MG/0.4 ML SQ SCH (10:22)
[2018-05-07 10:38] VITALS: O2SAT 94
--- NOTE | 2018-05-07 16:52 | P.DS ---
Admission Date: 05/02/18 Discharge Date: 05/07/18 Disposition: ROUTINE DISCHARGE Discharge Condition: GOOD Reason for Admission: Displaced subcapital fracture of the left femur Consultations: Ortho - Problems (1) Subcapital fracture of left femur Onset Date: 05/04/18 Current Visit: Yes Status: Acute Qualifiers: Encounter type: initial encounter (2) History of breast cancer Current Visit: Yes Status: Chronic Brief History of Present Illness: Patient is an 82-year-old female came into the hospital after falling from the couch. She was taking a nap when she heard the phone ring. She got up from the couch to and fell. She suffered the fracture was not able to get up. She suffered a compression fracture a year ago and at that time was diagnosed with osteoporosis. She does not have many illnesses. She does not take any medications. 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 She tends to be very active at her age. She should be low risk from any cardiopulmonary complications during the perioperative period. Hospital Course: Overall during the hospital stay patient remained stable The patient was initially admitted to the hospital after having a fall at the house and had intratrochanteric fracture. Orthopedics was consulted. Patient had surgical procedure done here in the hospital with open reduction internal fixation. Patient did well postprocedure. Patient did have stay decline in her hemoglobin and was started on Lovenox due to high risk for DVT. Patient was then referred to inpatient rehab for 3 hr of therapy and close monitoring of her hemoglobin. Patient was accepted in inpatient rehab insurance approval was obtained. Patient then was discharged to inpatient rehab under stable condition. No further complications were noted while here in the hospital Vital Signs/Physical Exam: Temp Pulse Resp BP Pulse Ox 98.0 F 65 18 130/60 96 05/07/18 12:00 05/07/18 12:00 05/07/18 12:00 05/07/18 12:00 05/07/18 12:00 General: Alert, In no apparent distress HEENT: Atraumatic, PERRLA, EOMI Neck: Supple, JVD not distended Respiratory: Clear to auscultation bilaterally, Normal air movement Cardiovascular: Regular rate/rhythm, Normal S1 S2 Gastrointestinal: Normal bowel sounds, No tenderness Musculoskeletal: No tenderness Integumentary: No rashes Neurological: Normal speech, Normal tone, Normal affect Lymphatics: No axilla or inguinal lymphadenopathy Laboratory Data at Discharge: WBC 14.6 K/uL (4.3-10.9) H D 05/03/18 03:56 Hgb 8.9 g/dL (12.0-15.0) L 05/07/18 05:20 Hct 25.6 % (36.0-45.0) L 05/07/18 05:20 Plt Count 285 K/uL (152-406) 05/03/18 03:56 PT 11.8 SECONDS (9.5-12.5) 05/03/18 03:56 INR 1.00 05/03/18 03:56 APTT 25.4 SECONDS (24.3-36.9) 05/03/18 03:56 Sodium 140 mmol/L (136-145) 05/03/18 03:56 Potassium 4.6 mmol/L (3.5-5.1) 05/03/18 03:56 BUN 23 mg/dL (7-18) H 05/03/18 03:56 Creatinine 0.90 mg/dL (0.55-1.3) 05/03/18 03:56 Glucose 143 mg/dL (74-106) H 05/03/18 03:56 Phosphorus 3.6 mg/dL (2.5-4.9) 05/03/18 03:56 Magnesium 2.0 mg/dL (1.8-2.4) 05/03/18 03:56 Total Bilirubin 0.7 mg/dL (0.2-1.0) 05/03/18 03:56 AST 21 U/L (15-37) 05/03/18 03:56 ALT 18 U/L (12-78) 05/03/18 03:56 Alkaline Phosphatase 97 U/L (45-117) 05/03/18 03:56 Home Medications: NK [No Home Meds] 05/02/18 Patient Discharge Instructions: Please fu with Dr Cardenas in 1 to 2 days post discharge. New medication. Lovenox 40meq daily Diet: Regular Activity: Ad yo Followup: Bertin Cardenas MD [ACTIVE - CAN ADMIT] - 1 Week
[2018-05-07 19:43] VITALS: BP 146/67; TEMP 99.3
== END 2018-05-07 22:22 | DRG 470 ==
LOC: ER 18:44 → 4TH 21:14
PROVIDERS: ADMIT Hospitalist; ATTEND Family Medicine
PROC: 0SRS0J9 Replacement of Left Hip Joint, Femoral Surface with Synthetic Substitute, Cemented, Open Approach (ICD-10-PCS; principal; 2018-05-04 12:00)
DX: S72.012A Unspecified intracapsular fracture of left femur, initial encounter for closed fracture (principal); W08.XXXA Fall from other furniture, initial encounter; Y92.048 Other place in boarding-house as the place of occurrence of the external cause; Z85.3 Personal history of malignant neoplasm of breast; M81.0 Age-related osteoporosis without current pathological fracture; Z88.2 Allergy status to sulfonamides; Z91.048 Other nonmedicinal substance allergy status
CPT/HCPCS: 36415; 51702; 72170; 80053; 83735; 84100; 85014; 85018; 85025; 85610; 85730; 88305; 88307; 88311; 93005; 97163; 99285; J0690; J1170; J1650; J2405; J7030

== ENCOUNTER 2018-12-22 10:45 | Emergency (ER) | payer OTHER ==
--- OUTSIDE RECORDS SUMMARY | 2018-12-22 10:47 | XMS REPORT ---
:1935 Author Organization [employer] Care Team Providers Name Role Phone Bertin Cardenas Provider Role Unavailable Allergies, Adverse Reactions, Alerts Substance Reaction Event Type Sulfa Info Not Available Drug Allergy Problems Problem Type Condition Code Onset Dates Condition Status Assessment Closed displaced fracture of left S72.002D Active femoral neck with routine healing Assessment Pain of left hip joint M25.552 Active Problem Closed displaced fracture of left S72.002D Active femoral neck with routine healing Problem Cyst of right ovary N83.201 Active Problem Pain of left hip joint M25.552 Active Problem History of breast cancer Z85.3 Active Problem Hernia, inguinal, left K40.90 Active Problem Osteoporosis with current M80.00XG Active pathological fracture with delayed healing, unspecified osteoporosis type, subsequent encounter Problem Compression fracture of body of M48.54XA Active thoracic vertebra Medications Medication Code System Code Instructions Start Date End Date Status Dosage Aspirin 81 NDC 04066215808 81 MG Orally Once Active 1 tablet a day Results No Known Results Summary Purpose [employer] Submission
--- OUTSIDE RECORDS SUMMARY | 2018-12-22 10:47 | XMS REPORT ---
:1935 Author Organization [employer] Care Team Providers Name Role Phone Bertin Cardenas Provider Role Unavailable Allergies, Adverse Reactions, Alerts Substance Reaction Event Type Sulfa Info Not Available Drug Allergy Problems Problem Type Condition Code Onset Dates Condition Status Problem History of breast cancer Z85.3 Active Problem Hernia, inguinal, left K40.90 Active Assessment Left sided sciatica M54.32 Active Assessment Left hip pain M25.552 Active Problem Left hip pain M25.552 Active Problem Closed displaced fracture of left S72.002D Active femoral neck with routine healing Problem Left sided sciatica M54.32 Active Problem Osteoporosis with current M80.00XG Active pathological fracture with delayed healing, unspecified osteoporosis type, subsequent encounter Problem Compression fracture of body of M48.54XA Active thoracic vertebra Problem Pain of left hip joint M25.552 Active Problem Cyst of right ovary N83.201 Active Medications Medication Code Code Instructions Start End Date Status Dosage System Date Gabapentin ND 86213356862 300 MG Orally Oct 16, Active 1 capsule Three times a 2018 day Magnesium ND 58852767054 300 MG Orally Oct 16, Active 1 capsule Once a day 2018 with a meal Aspirin 81 ND 00994321230 81 MG Orally Active 1 tablet Once a day Tramadol HCl ND 85120435660 50 MG Orally Active 1 tablet every 6 hrs as needed Results No Known Results Summary Purpose [employer] Submission
[2018-12-22] MEDS ORDERED: ONDANSETRON 4 MG/2 ML VIAL ONE (11:17)
[2018-12-22] MEDS ORDERED: MORPHINE 2 MG/ML SYR ONE ×2 (11:17→12:35)
[2018-12-22 11:27] LABS: Absolute Lymphocytes (CBC) 1.2 K/uL (0.7-4.9); Absolute Monocytes 0.6 K/uL (0.1-1.3); Basophils % 0.9 % (0-1.3); Eosinophils % 1.6 % (0-4.4); Hematocrit 36.4 % (36.0-45.0); Lymphocytes % 11.9 % (15.3-44.8); MPV 8.1 fL (7.6-11.3); Monocytes % 6.4 % (3.3-12.3)
[2018-12-22 11:43] LABS: Potassium 4.2 mmol/L (3.5-5.1)
--- NOTE | 2018-12-22 12:25 | RAD REPORT ---
EXAM DESCRIPTION: CT - Head C Spine Cap Raffaele Perez - 12/22/2018 12:03 pm CLINICAL HISTORY: Slip and fall, head, neck, chest and abdomen pain COMPARISON: Thoracic spine May 2018, lumbar spine May 2018. TECHNIQUE: Axial [address] head images were obtained. Axial [address] cervical spine images were obtaine d with sagittal and coronal reconstruction images reviewed. During dynamic enhancement of 100mL non-i onic contrast, axial 5 mm images of the chest, abdomen and pelvis were obtained. All CT scans are performed using dose optimization technique as appropriate and may include automated exposure control or mA/KV adjustment according to patient size. FINDINGS: No intracranial hemorrhage, mass or edema. No midline shift or abnormal fluid collection. Mastoid air cells and paranasal sinuses are clear. No skull fracture. Atrophy and chronic ischemic changes are present. Ventricles are in proportion to volume loss. CT cervical spine imaging shows normal height. Normal alignment of the vertebrae. Disc space narrowin g is present from C4-5 through C6-7 mild bony foraminal encroachment at C5-6 and C6-7. No paraspinal mass or hematoma seen. Central canal detail is inherently limited. Concerns for traumatic disc hernia tion or traumatic cord injury can be further addressed with MR imaging. Scarring changes are present in the right anterior apex. In the inferior right upper lobe near the mi nor fissure (image 20/80) there is a 9 x 4 millimeter spiculated density. Minimal subpleural scarring areas elsewhere in the chest. There is a 3 millimeter nodule in the posterior upper left lower lobe (image 26/80). No pneumothorax or pulmonary contusion. Aorta and pulmonary arterial tree enhance norm ally. No mediastinal mass or hematoma. No chest will mass or abnormal axillary finding. Scapula is in tact. No dislocation or fracture of the proximal humerus seen. Imaged portions of the clavicle are in tact as well. The lateral sixth- ninth ribs are fractured without significant displacement. No associ ated pneumothorax. No pleural fluid. CT abdomen and pelvis show no injury to solid abdominal viscera. Gallbladder and biliary tree are unr emarkable. No bowel injury or significant finding. No free air, free fluid or abnormal stranding. Few prominent fluid-filled bowel loops are present. Left hip prosthesis in place. Approximately 40% T8 compression fracture is present. Approximately 50% wedge compression fracture of T12 and 20% wedge compression T11. Degenerative changes through and throughout the lower thoracic di sc spaces. Compression fracture of T1 has been treated with vertebroplasty procedure. There is 50% bi concave compression fracture in the L4 body. The thoracic and L1 vertebral findings are stable from prior imaging. The L4 compression fracture is new from May 2018 but is not otherwise dated. IMPRESSION: Atrophy and chronic ischemic change with no acute intracranial finding. Cervical spine degenerative change with no acute finding. Fracture of the lateral right sixth- ninth ribs without significant displacement. No associated pneum othorax, pulmonary contusion or hemothorax. A 9 x 4 mm spiculated density in the right upper lobe near the minor fissure warrants CT re-evaluatio n in 3 months. No soft tissue injury or acute soft tissue finding in the abdomen and pelvis. Multiple thoracic and upper lumbar compression fracture deformity stable from prior imaging. L4 compression fracture changes are new from May 2018 but not otherwise dated. No significant CT Abdomen and Pelvis finding.
--- NOTE | 2018-12-22 12:59 | ER ---
Nurse's Notes [facility] Name: Piper Magaña Age: 83 yrs Sex: Female : 1935 Arrival Date: 12/22/2018 Time: 10:47 Bed 17 Private MD: Wilner Lindsay E Diagnosis: Multiple fractures of ribs, right side Presentation: 12/22 10:53 Presenting complaint: Patient states: i was getting out of the shower and the stool tw2 that i sit on when i get dressed slipped out from under me and i hit my ribs on the right side, denies LOC, denies hitting head. Transition of care: patient was not received from another setting of care. Onset of symptoms was December 22, 2018. Risk Assessment: Do you want to hurt yourself or someone else? Patient reports no desire to harm self or others. Initial Sepsis Screen: Does the patient meet any 2 criteria? No. Patient's initial sepsis screen is negative. Does the patient have a suspected source of infection? No. Patient's initial sepsis screen is negative. Care prior to arrival: None. 10:53 Method Of Arrival: Wheelchair tw2 10:53 Acuity: TRACY 3 tw2 11:01 Mechanism of Injury: Fall from standing position. Trauma event details: Injury occurred tw2 in the [facility]. Triage Assessment: 10:56 General: Appears uncomfortable, slender, well groomed, Behavior is calm, cooperative, tw2 appropriate for age. Pain: Complains of pain in right sided ribs. Trauma Activation: Alert Physician: ED Physician; Name: ; Notified At: ; Arrived At: Physician: General Surgeon; Name: ; Notified At: ; Arrived At: Physician: Radiology; Name: ; Notified At: ; Arrived At: Physician: Respiratory; Name: ; Notified At: ; Arrived At: Physician: Lab; Name: ; Notified At: ; Arrived At: Historical: - Allergies: 10:57 Sulfa (Sulfonamide Antibiotics); tw2 - Home Meds: 10:57 acetaminophen-codeine 300-30 mg Oral tab 1 tab as needed [Active]; tw2 - PMHx: 10:57 Osteoporosis; spine compression fx; tw2 - PSHx: 10:57 back surg; tw2 - Immunization history:: Adult Immunizations. - Social history:: Smoking status: . - Immunization history: Last tetanus immunization: n/a. - Ebola Screening: : Patient denies travel to an Ebola-affected area in the 21 days before illness onset. Screenin:01 Abuse screen: Denies threats or abuse. Nutritional screening: No deficits noted. tw2 Tuberculosis screening: No symptoms or risk factors identified. Fall Risk None identified. Primary Survey: 11:00 NO uncontrolled hemorrhage observed. A: The patient is alert. Breathing/Chest: tw2 Respiratory pattern: regular, Respiratory effort: spontaneous, unlabored, Breath sounds: clear, bilaterally. Chest inspection: symmetrical rise and fall of the chest. Circulation: Heart tones present. Skin color: pink, Skin temperature: warm, dry. Disability Alert. Exposure/Environment: All clothing and personal items were removed. Forensic evidence collection is not deemed to be indicated at this time. Items placed in patient belonging bag. A warming method has been applied: A warm blanket has been provided to the patient. 11:47 Reassessment Airway Airway Patent Breathing/Chest Respiratory pattern Regular tw2 Respiratory effort Spontaneous Unlabored Breath sounds Clear Chest inspection Symmetrical Circulation Heart tones Present Temperature Warm Dry Disability Alert. Assessment: 10:58 Reassessment: pt talking with family member at this time without grimacing and NAD, pt tw2 states "if i am still it dont hurt so bad". General: Appears uncomfortable, slender, well groomed, Behavior is calm, cooperative, appropriate for age. Pain: Complains of pain in "right ribs and on my right side". Neuro: Level of Consciousness is awake, alert, obeys commands, Oriented to person, place, time, situation. EENT: No signs and/or symptoms were reported regarding the EENT system. Cardiovascular: Denies chest pain, shortness of breath, Heart tones S1 S2 Patient's skin is warm and dry. Respiratory: Airway is patent Respiratory effort is even, unlabored, Respiratory pattern is regular, symmetrical, Breath sounds are clear bilaterally. GI: No signs and/or symptoms were reported involving the gastrointestinal system. Abdomen is flat, Bowel sounds present X 4 quads. : No signs and/or symptoms were reported regarding the genitourinary system. Derm: No signs and/or symptoms reported regarding the dermatologic system. Musculoskeletal: Circulation, motion, and sensation intact. Range of motion: intact in all extremities, Reports pain in right rib area. 11:48 Reassessment: Patient appears in no apparent distress at this time. No changes from tw2 previously documented assessment. Patient and/or family updated on plan of care and expected duration. Pain level reassessed. Patient is alert, oriented x 3, equal unlabored respirations, skin warm/dry/pink. 12:16 Reassessment: pt back from CT c/o pain, provider notified. tw2 13:52 Reassessment: pt dressed then sat up to get into w/c, became nauseous, iv had been tw2 removed, provider notified, and medicated with PO Zofran at this time., will monitor prior to discharge. 14:10 Reassessment: Patient appears in no apparent distress at this time. Patient and/or tw2 family updated on plan of care and expected duration. Pain level reassessed. Patient is alert, oriented x 3, equal unlabored respirations, skin warm/dry/pink. Patient states feeling better. Patient states symptoms have improved. Vital Signs: 10:55 BP 144 / 129; Pulse 97; Resp 19; Temp 97.6(TE); Pulse Ox 99% on R/A; Pain 10/10; tw2 11:48 BP 125 / 78; Pulse 62; Resp 17; Pulse Ox 100% on R/A; tw2 12:50 BP 138 / 97; Pulse 72; Resp 17; Pulse Ox 99% on R/A; tw2 13:33 BP 136 / 70; Pulse 69; Resp 17; Pulse Ox 98% on R/A; tw2 14:11 BP 129 / 81; Pulse 73; Resp 17; Pulse Ox 99% on R/A; tw2 Stanton Coma Score: 11:01 Eye Response: spontaneous(4). Verbal Response: oriented(5). Motor Response: obeys tw2 commands(6). Total: 15. Trauma Score (Adult): 11:01 Eye Response: spontaneous(1); Verbal Response: oriented(1); Motor Response: obeys tw2 commands(2); Systolic BP: > 89 mm Hg(4); Respiratory Rate: 10 to 29 per min(4); Marcia Score: 15; Trauma Score: 12 ED Course: 10:47 Patient arrived in ED. mr 10:47 Wilner Lindsay MD is Private Physician. mr 10:49 Renato Thomas, STEVIE is PHCP. pm1 10:49 Lazaro Perla MD is Attending Physician. pm1 10:50 Placed in gown. Bed in low position. Adult w/ patient. supervisor stitching department on. Pulse ox on. tw2 NIBP on. Warm blanket given. 10:53 Nicky Hall, RN is Primary Nurse. tw2 10:54 Triage completed. tw2 10:56 Arm band placed on. tw2 11:01 Patient maintains SpO2 saturation greater than 95% on room air. tw2 11:02 Thermoregulation: warm blanket given to patient. tw2 11:[address] via stretcher. jg6 12:04 CT Traumagram (Head C Spine CAP W Con) In Process Unspecified. EDMS 13:35 INCENTIVE SPIROMETRY Sent. tw2 13:36 No provider procedures requiring assistance completed. IV discontinued, intact, tw2 bleeding controlled, No redness/swelling at site. Pressure dressing applied. 13:52 Awaiting: re-evaluation of effects of Zofran PRIOR to discharge. tw2 Administered Medications: 11:10 Drug: Zofran 4 mg Route: IVP; Site: left antecubital; tw2 13:35 Follow up: Response: No adverse reaction tw2 11:14 Drug: morphine 2 mg Route: IVP; Site: left antecubital; tw2 11:40 Follow up: Response: No adverse reaction; Pain is decreased tw2 12:28 Drug: morphine 2 mg Route: IVP; Site: left antecubital; tw2 13:00 Follow up: Response: No adverse reaction; Pain is decreased tw2 13:50 Drug: Zofran 4 mg Route: PO; tw2 14:10 Follow up: Response: No adverse reaction; Marked relief of symptoms; Nausea is decreasedtw2 Output: 13:00 Urine: 300ml (Voided); Total: 300ml. tw2 Outcome: 12:58 Discharge ordered by . pm1 13:34 Discharged to home via wheelchair, with family. tw2 13:34 Condition: stable 13:34 Patient's length of stay in the Emergency Department was greater than 2 hours. pt flow in ERPatient's length of stay extended due to 13:37 Discharge instructions given to patient, family, Instructed on discharge instructions, tw2 follow up and referral plans. no drinking with medication, no driving heavy equipment, medication usage, incentive spirometer use and necessity to pt and family, with return demonstration. 14:11 Patient left the ED. Signatures: Dispatcher [employer] DARRELL MauriceCarol Ann WilliamRenato UPPER LEATHER SORTER UPPER LEATHER SORTER pm1 Nicky Hall RN RN tw2 Niurka Tapia [email or web address] Corrections: (The following items were deleted from the chart) 11:06 11:01 Trauma Activation: Not Applicable tw2 tw
--- NOTE | 2018-12-22 12:59 | EDPHYS ---
Physician Documentation [facility] Name: Piper Magaña Age: 83 yrs Sex: Female : 1935 Arrival Date: 12/22/2018 Time: 10:47 Bed 17 Private MD: Wilner Lindsay E ED Physician Lazaro Perla HPI: 12/22 11:13 This 83 yrs old Female presents to ER via Wheelchair with complaints of Fall pm1 Injury, Chest Wall Injury. 11:13 Details of fall: The patient fell from seated position, out of a chair. Onset: The pm1 symptoms/episode began/occurred just prior to arrival. Associated injuries: The patient sustained injury to the chest, specifically the right breast. Severity of symptoms: in the emergency department the symptoms are unchanged. The patient has not recently seen a physician. Patient got out of the shower and was sitting in a chair in the bathroom to get dressed. The chair slipped out from underneath her and she hit the right side of her chest on the toilet. Patient denies headache, head injury, neck pain, or LOC. No shortness of breath present. Historical: - Allergies: 10:57 Sulfa (Sulfonamide Antibiotics); tw2 - Home Meds: 10:57 acetaminophen-codeine 300-30 mg Oral tab 1 tab as needed [Active]; tw2 - PMHx: 10:57 Osteoporosis; spine compression fx; tw2 - PSHx: 10:57 back surg; tw2 - Immunization history:: Adult Immunizations. - Social history:: Smoking status: . - Immunization history: Last tetanus immunization: n/a. - Ebola Screening: : Patient denies travel to an Ebola-affected area in the 21 days before illness onset. ROS: 11:13 Constitutional: Negative for fever, chills, and weight loss, Eyes: Negative for injury, pm1 pain, redness, and discharge, ENT: Negative for injury, pain, and discharge, Neck: Negative for injury, pain, and swelling, Respiratory: Negative for shortness of breath, cough, wheezing, and pleuritic chest pain, Abdomen/GI: Negative for abdominal pain, nausea, vomiting, diarrhea, and constipation, Back: Negative for injury and pain, : Negative for injury, bleeding, discharge, and swelling, MS/Extremity: Negative for injury and deformity, Skin: Negative for injury, rash, and discoloration, Neuro: Negative for headache, weakness, numbness, tingling, and seizure. 11:13 Cardiovascular: Positive for chest pain, of the right breast, Negative for edema, orthopnea, palpitations. Exam: 11:16 Constitutional: This is a well developed, well nourished patient who is awake, alert, pm1 and in no acute distress. Head/Face: Normocephalic, atraumatic. Eyes: Pupils equal round and reactive to light, extra-ocular motions intact. Lids and lashes normal. Conjunctiva and sclera are non-icteric and not injected. Cornea within normal limits. Periorbital areas with no swelling, redness, or edema. ENT: Nares patent. No nasal discharge, no septal abnormalities noted. Tympanic membranes are normal and external auditory canals are clear. Oropharynx with no redness, swelling, or masses, exudates, or evidence of obstruction, uvula midline. Mucous membranes moist. Neck: Trachea midline, no thyromegaly or masses palpated, and no cervical lymphadenopathy. Supple, full range of motion without nuchal rigidity, or vertebral point tenderness. No Meningismus. 11:16 Cardiovascular: Regular rate and rhythm with a normal S1 and S2. No gallops, murmurs, or rubs. Normal PMI, no JVD. No pulse deficits. Respiratory: Lungs have equal breath sounds bilaterally, clear to auscultation and percussion. No rales, rhonchi or wheezes noted. No increased work of breathing, no retractions or nasal flaring. Abdomen/GI: Soft, non-tender, with normal bowel sounds. No distension or tympany. No guarding or rebound. No evidence of tenderness throughout. Back: No spinal tenderness. No costovertebral tenderness. Full range of motion. Skin: Warm, dry with normal turgor. Normal color with no rashes, no lesions, and no evidence of cellulitis. MS/ Extremity: Pulses equal, no cyanosis. Neurovascular intact. Full, normal range of motion. 11:16 Chest/axilla: Inspection: normal, Palpation: crepitus, is not appreciated, tenderness, that is moderate, of the focal point to right breast, that totally reproduces the patient's complaints. 11:16 Neuro: Orientation: is normal, Motor: is normal, moves all fours. Vital Signs: 10:55 BP 144 / 129; Pulse 97; Resp 19; Temp 97.6(TE); Pulse Ox 99% on R/A; Pain 10/10; tw2 11:48 BP 125 / 78; Pulse 62; Resp 17; Pulse Ox 100% on R/A; tw2 12:50 BP 138 / 97; Pulse 72; Resp 17; Pulse Ox 99% on R/A; tw2 13:33 BP 136 / 70; Pulse 69; Resp 17; Pulse Ox 98% on R/A; tw2 14:11 BP 129 / 81; Pulse 73; Resp 17; Pulse Ox 99% on R/A; tw2 Joaquin Coma Score: 11:01 Eye Response: spontaneous(4). Verbal Response: oriented(5). Motor Response: obeys tw2 commands(6). Total: 15. Trauma Score (Adult): 11:01 Eye Response: spontaneous(1); Verbal Response: oriented(1); Motor Response: obeys tw2 commands(2); Systolic BP: > 89 mm Hg(4); Respiratory Rate: 10 to 29 per min(4); Marcia Score: 15; Trauma Score: 12 MDM: 10:50 Patient medically screened. [facility] 11:17 Data reviewed: vital signs. Data interpreted: Pulse oximetry: on room air is 99 %. pm1 Interpretation: normal. 12:57 Counseling: I had a detailed discussion with the patient and/or guardian regarding: the pm1 historical points, exam findings, and any diagnostic results supporting the discharge/admit diagnosis, lab results, radiology results, the need for outpatient follow up, to return to the emergency department if symptoms worsen or persist or if there are any questions or concerns that arise at home. 12:59 ED course: Patient's pain improved and she is comfortable with morphine administered in pm1 the ER. Patient wants to go home. Will discharge home with Tylenol #3. Daughter will stay with the patient tonight. 12/22 10:57 Order name: Basic Metabolic Panel; Complete Time: 11:58 pm1 12/22 10:57 Order name: CBC with Diff; Complete Time: 11:31 pm1 12/22 10:57 Order name: CT Traumagram (Head C Spine CAP W Con); Complete Time: 12:26 pm1 12/22 10:57 Order name: Creatinine for Radiology; Complete Time: 11:58 pm1 12/22 10:57 Order name: Type And Screen; Complete Time: 12:44 pm12/22 12:59 Order name: INCENTIVE SPIROMETRY pm1 12/22 11:03 Order name: IV Start; Complete Time: 11:29 tw2 Administered Medications: 11:10 Drug: Zofran 4 mg Route: IVP; Site: left antecubital; tw2 13:35 Follow up: Response: No adverse reaction tw2 11:14 Drug: morphine 2 mg Route: IVP; Site: left antecubital; tw2 11:40 Follow up: Response: No adverse reaction; Pain is decreased tw2 12:28 Drug: morphine 2 mg Route: IVP; Site: left antecubital; tw2 13:00 Follow up: Response: No adverse reaction; Pain is decreased tw2 13:50 Drug: Zofran 4 mg Route: PO; tw2 14:10 Follow up: Response: No adverse reaction; Marked relief of symptoms; Nausea is decreasedtw2 Disposition: 12/22/18 12:58 Discharged to Home. Impression: Multiple fractures of ribs, right side. - Condition is Stable. - Discharge Instructions: Rib Fracture, Incentive Spirometer. - Prescriptions for Tylenol- Codeine #3 300-30 mg Oral Tablet - take 2 tablet by ORAL route every 6 hours As needed; 30 tablet. - Medication Reconciliation Form, Thank You Letter, Antibiotic Education, Prescription Opioid Use form. - Follow up: Emergency Department; When: As needed; Reason: Worsening of condition. Follow up: Private Physician; When: 2 - 3 days; Reason: Recheck today's complaints, Continuance of care, Re-evaluation by your physician. - Problem is new. - Symptoms have improved. Signatures: Dispatcher [employer] EDMS Radha Abdullahi Corey, MD MD cha Marinas, Patrick, QUALITY ASSURANCE/R&D LAB TECHNICIAN QUALITY ASSURANCE/R&D LAB TECHNICIAN pm1 Nicky Hall RN RN tw2 Corrections: (The following items were deleted from the chart) 13:35 11:36 Labs - recollect needed ordered. bd tw2 14:11 12:58 12/22/2018 12:58 Discharged to Home. Impression: Multiple fractures of ribs, tw2 right side. Condition is Stable. Forms are Medication Reconciliation Form, Thank You Letter, Antibiotic Education, Prescription Opioid Use. Follow up: Emergency Department; When: As needed; Reason: Worsening of condition. Follow up: Private Physician; When: 2 - 3 days; Reason: Recheck today's complaints, Continuance of care, Re-evaluation by your physician. Problem is new. Symptoms have improved. pm1
[2018-12-22] MEDS ORDERED: ONDANSETRON 4 MG (ODT) TAB ONE (14:02)
[2018-12-22 14:37] VITALS: TEMP 97.6
[2018-12-22 14:42] VITALS: BP 129/81; O2SAT 99
== END 2018-12-22 14:11 | disposition home or self-care (01) ==
LOC: ER 10:45
DX: S22.41XA Multiple fractures of ribs, right side, initial encounter for closed fracture (principal); W07.XXXA Fall from chair, initial encounter; Y93.E1 Activity, personal bathing and showering; Y92.89 Other specified places as the place of occurrence of the external cause; M81.0 Age-related osteoporosis without current pathological fracture; Z88.2 Allergy status to sulfonamides
CPT/HCPCS: 85025; 80048; 36415; 86900; 86850; 86901; 70450; 72125; 71260; 74177; Q9967; J2270 ×2; J2405

== ENCOUNTER 2019-03-31 14:53 | Emergency (ER) | payer OTHER ==
--- OUTSIDE RECORDS SUMMARY | 2019-03-31 14:54 | XMS REPORT ---
[...] Date Status Dosage System Date Gabapentin ND 76518293412 300 MG Orally Oct 16, Active 1 capsule Three times a 2018 day Magnesium ND 20256159141 300 MG Orally Oct 16, Active 1 capsule Once a day 2018 with a meal Aspirin 81 ND 41173541433 81 MG Orally Active 1 tablet Once a day Tramadol HCl ND 77262508790 50 MG Orally Active 1 tablet every 6 hrs as needed Results No Known Results Summary Purpose eClinicalWorks Submission
--- OUTSIDE RECORDS SUMMARY | 2019-03-31 14:54 | XMS REPORT ---
[...] End Date Status Dosage Aspirin 81 NDC [id number] 81 MG Orally Once Active 1 tablet a day Results No Known Results Summary Purpose eClinicalWorks Submission
--- NOTE | 2019-03-31 16:15 | RAD REPORT ---
EXAM DESCRIPTION: CT - Head Brain Wo Cont - 03/31/2019 3:53 pm CLINICAL HISTORY: Head injury status post fall COMPARISON: November 2018 TECHNIQUE: Computed axial tomography of the head was obtained. IV contrast was not requested. All CT scans are performed using dose optimization technique as appropriate and may include automated exposure control or mA/KV adjustment according to patient size. FINDINGS: An intracranial bleed is not seen . The ventricles are normal in caliber. No extra-axial fluid collection is noted. Fluid within the sinuses/ mastoids is not seen. IMPRESSION: No acute intracranial abnormality is seen. If patient's symptoms persist MRI of the bra in would be recommended.
--- NOTE | 2019-03-31 16:59 | ER ---
Nurse's Notes [facility] Name: Piper Magaña Age: 83 yrs Sex: Female : 1935 Arrival Date: 03/31/2019 Time: 14:55 Bed 28 Private MD: Diagnosis: Displaced impacted humeral head fracture;Fall on same level from slipping, tripping and stumbling Presentation: 03/31 14:56 Presenting complaint: EMS states: Fall from standing about 1 hour ago. Pt denies pain ss at this time other than mild pain with ROM to R shoulder and small hematoma noted to R side of forehead. Transition of care: patient was not received from another setting of care. Onset of symptoms was March 31, 2019. Risk Assessment: Do you want to hurt yourself or someone else? Patient reports no desire to harm self or others. Initial Sepsis Screen: Does the patient meet any 2 criteria? No. Patient's initial sepsis screen is negative. Does the patient have a suspected source of infection? No. Patient's initial sepsis screen is negative. Care prior to arrival: None. 14:56 Method Of Arrival: EMS: [facility] 14:56 Acuity: TRACY 3 ss Historical: - Allergies: 14:58 Sulfa (Sulfonamide Antibiotics); ss - Home Meds: 16:30 acetaminophen-codeine 300-30 mg Oral tab 1 tab as needed [Active]; mg2 - PMHx: 14:58 Osteoporosis; spine compression fx; ss - PSHx: 14:58 back surg; ss - Immunization history:: Adult Immunizations up to date. - Social history:: Smoking status: Patient/guardian denies using tobacco. - Ebola Screening: : Patient denies exposure to infectious person Patient denies travel to an Ebola-affected area in the 21 days before illness onset. Screenin:27 Abuse screen: Denies threats or abuse. Denies injuries from another. Nutritional mg2 screening: No deficits noted. Tuberculosis screening: No symptoms or risk factors identified. Fall Risk Fall in past 12 months (25 points). IV access (20 points). Assessment: 16:24 General: Appears in no apparent distress. comfortable, Behavior is calm, cooperative. mg2 Pain: Complains of pain in right shoulder Pain does not radiate. Pain currently is 2 out of 10 on a pain scale. Quality of pain is described as aching, Pain began suddenly. Neuro: Level of Consciousness is awake, alert, obeys commands, Oriented to person, place, time, situation. Cardiovascular: Capillary refill < 3 seconds Patient's skin is warm and dry. Respiratory: Airway is patent Respiratory effort is even, unlabored, Respiratory pattern is regular, symmetrical. GI: No signs and/or symptoms were reported involving the gastrointestinal system. : No signs and/or symptoms were reported regarding the genitourinary system. EENT: No signs and/or symptoms were reported regarding the EENT system. Derm: Skin is intact, is healthy with good turgor, Skin is pink, warm \T\ dry. normal, Bruising that is dark purple, on forehead. Musculoskeletal: Reports pain in right shoulder. Vital Signs: 14:58 BP 137 / 59; Pulse 72; Resp 17; Temp 98.8(O); Pulse Ox 98% on R/A; Weight 45.36 kg; ss Height 5 ft. 0 in. (152.40 cm); Pain 0/10; 16:26 BP 137 / 64; Pulse 61; Resp 18; Pulse Ox 100% on R/A; mg2 14:58 Body Mass Index 19.53 (45.36 kg, 152.40 cm) ss ED Course: 14:55 Patient arrived in ED. mg2 14:57 Triage completed. ss 14:58 Arm band placed on right wrist. ss 15:17 Al Solomon, ANSHUL is Primary Nurse. mg2 15:27 Katiana Guzman F[facility]-C [facility]. kb 15:27 Nirav Medeiros MD is Attending Physician. kb 15:53 CT Head Brain wo Cont In Process Unspecified. EDMS 16:24 Shoulder Right (2 View) XRAY In Process Unspecified. EDMS 16:29 No provider procedures requiring assistance completed. Maintain EMS IV. Dressing mg2 intact. Good blood return noted. Site clean \T\ dry. Gauge \T\ site: 20 T left forearm. 16:30 Patient has correct armband on for positive identification. Pulse ox on. NIBP on. mg2 17:30 IV discontinued, intact, bleeding controlled, No redness/swelling at site. Pressure mg2 dressing applied. Sling applied to right arm. Administered Medications: 17:29 Drug: Tylenol #3 (300 mg-30 mg) 1 tablet Route: PO; mg2 17:30 Follow up: Response: No adverse reaction; Medication administered at discharge. mg2 Outcome: 16:59 Discharge ordered by . maria eugenia 17:30 Discharged to home via wheelchair, with family. mg2 17:30 Condition: stable 17:30 Discharge instructions given to patient, family, Instructed on discharge instructions, follow up and referral plans. medication usage, Demonstrated understanding of instructions, follow-up care, medications, Prescriptions given X 1. 17:31 Patient left the ED. mg2 Signatures: Dispatcher [employer] EDMS Katiana Guzman, MARINA PORTER-C MARINA PORTER-Bailey Caceres RN RN Al Solomon RN RN mg2 Corrections: (The following items were deleted from the chart) 16:30 14:58 Home Meds: None; mg2
--- NOTE | 2019-03-31 16:59 | EDPHYS ---
Physician Documentation [facility] Name: Piper Magaña Age: 83 yrs Sex: Female : 1935 Arrival Date: 03/31/2019 Time: 14:55 Bed 28 Private MD: ED Physician Nirav Medeiros HPI: 04/01 02:12 This 83 yrs old Female presents to ER via EMS with complaints of Fall Injury. kb 02:12 Details of fall: The patient fell from an upright position. Onset: The symptoms/episode kb began/occurred just prior to arrival. Associated injuries: The patient sustained injury to the head, hematoma, anterior aspect of right shoulder, decreased range of motion, painful injury. Severity of symptoms: At their worst the symptoms were moderate, in the emergency department the symptoms are unchanged. The patient has not experienced similar symptoms in the past. The patient has not recently seen a physician. Pt reports she was reaching for a shopping cart and fell forward. Hit head and right shoulder.. Historical: - Allergies: 03/31 14:58 Sulfa (Sulfonamide Antibiotics); ss - Home Meds: 16:30 acetaminophen-codeine 300-30 mg Oral tab 1 tab as needed [Active]; mg2 - PMHx: 14:58 Osteoporosis; spine compression fx; ss - PSHx: 14:58 back surg; ss - Immunization history:: Adult Immunizations up to date. - Social history:: Smoking status: Patient/guardian denies using tobacco. - Ebola Screening: : Patient denies exposure to infectious person Patient denies travel to an Ebola-affected area in the 21 days before illness onset. ROS: 04/01 02:12 Constitutional: Negative for fever, chills, and weight loss, ENT: Negative for injury, kb pain, and discharge, Neck: Negative for injury, pain, and swelling, Cardiovascular: Negative for chest pain, palpitations, and edema, Respiratory: Negative for shortness of breath, cough, wheezing, and pleuritic chest pain, Abdomen/GI: Negative for abdominal pain, nausea, vomiting, diarrhea, and constipation, Skin: Negative for injury, rash, and discoloration, Neuro: Negative for headache, weakness, numbness, tingling, and seizure. MS/extremity: Positive for injury or acute deformity, decreased range of motion, pain, swelling, tenderness, of the anterior aspect of right shoulder. Exam: 02:12 Constitutional: This is a well developed, well nourished patient who is awake, alert, kb and in no acute distress. Eyes: Pupils equal round and reactive to light, extra-ocular motions intact. Lids and lashes normal. Conjunctiva and sclera are non-icteric and not injected. Cornea within normal limits. Periorbital areas with no swelling, redness, or edema. ENT: Nares patent. No nasal discharge, no septal abnormalities noted. Tympanic membranes are normal and external auditory canals are clear. Oropharynx with no redness, swelling, or masses, exudates, or evidence of obstruction, uvula midline. Mucous membranes moist. Neck: Trachea midline, no thyromegaly or masses palpated, and no cervical lymphadenopathy. Supple, full range of motion without nuchal rigidity, or vertebral point tenderness. No Meningismus. Chest/axilla: Normal chest wall appearance and motion. Nontender with no deformity. No lesions are appreciated. Cardiovascular: Regular rate and rhythm with a normal S1 and S2. No gallops, murmurs, or rubs. Normal PMI, no JVD. No pulse deficits. Respiratory: Lungs have equal breath sounds bilaterally, clear to auscultation and percussion. No rales, rhonchi or wheezes noted. No increased work of breathing, no retractions or nasal flaring. Abdomen/GI: Soft, non-tender, with normal bowel sounds. No distension or tympany. No guarding or rebound. No evidence of tenderness throughout. Back: No spinal tenderness. No costovertebral tenderness. Full range of motion. Skin: Warm, dry with normal turgor. Normal color with no rashes, no lesions, and no evidence of cellulitis. Neuro: Awake and alert, GCS 15, oriented to person, place, time, and situation. Cranial nerves II-XII grossly intact. Motor strength 5/5 in all extremities. Sensory grossly intact. Cerebellar exam normal. Normal gait. 02:12 Head/face: Noted is no obvious of injury or deformity except hematoma, that is mild, of the right side of forehead. 02:12 Musculoskeletal/extremity: Extremities: grossly normal except: noted in the anterior aspect of right shoulder: decreased ROM, deformity, pain, swelling, tenderness, ROM: limited active range of motion, Circulation is intact in all extremities. Sensation intact. Vital Signs: 03/31 14:58 BP 137 / 59; Pulse 72; Resp 17; Temp 98.8(O); Pulse Ox 98% on R/A; Weight 45.36 kg; ss Height 5 ft. 0 in. (152.40 cm); Pain 0/10; 16:26 BP 137 / 64; Pulse 61; Resp 18; Pulse Ox 100% on R/A; mg2 14:58 Body Mass Index 19.53 (45.36 kg, 152.40 cm) ss MDM: 15:27 Patient medically screened. kb 04/01 02:14 Data reviewed: vital signs, nurses notes. Data interpreted: Pulse oximetry: on room air kb is 100 %. Interpretation: normal. Counseling: I had a detailed discussion with the patient and/or guardian regarding: the historical points, exam findings, and any diagnostic results supporting the discharge/admit diagnosis, radiology results, the need for outpatient follow up, a orthopedic surgeon, to return to the emergency department if symptoms worsen or persist or if there are any questions or concerns that arise at home. ED course: Pt has seen Dr Cardenas for hip fracture. Daughter called to make a follow up appt prior to discharge. 03/31 15:33 Order name: CT Head Brain wo Cont; Complete Time: 16:17 kb 03/31 15:33 Order name: Shoulder Right (2 View) XRAY; Complete Time: 17:11 kb 03/31 16:54 Order name: Sling; Complete Time: 17:11 kb Administered Medications: 03/31 17:29 Drug: Tylenol #3 (300 mg-30 mg) 1 tablet Route: PO; mg2 17:30 Follow up: Response: No adverse reaction; Medication administered at discharge. mg2 Disposition: 03/31/19 16:59 Discharged to Home. Impression: Displaced impacted humeral head fracture, Fall on same level from slipping, tripping and stumbling. - Condition is Stable. - Discharge Instructions: Humerus Fracture Treated With Immobilization, [id number], Fall Prevention in the Home, [id number]. - Prescriptions for Tylenol- Codeine #3 300-30 mg Oral Tablet - take 1 tablet by ORAL route every 6 hours As needed; 15 tablet. - Medication Reconciliation Form, Thank You Letter, Antibiotic Education, Prescription Opioid Use form. - Follow up: Emergency Department; When: As needed; Reason: Worsening of condition. Follow up: Private Physician; When: 2 - 3 days; Reason: Recheck today's complaints, Continuance of care, Re-evaluation by your physician. Addendum: 04/04/2019 08:40 Co-signature as Attending Physician, Katiana CALDERON I agree with the assessment k dr and plan of care. Signatures: Dispatcher [employer] EDMS Katiana Guzman FNP-C FNP-Nirav Ponce MD MD [facility] Bailey Estrella RN RN ss Al Solomon RN RN mg2 Corrections: (The following items were deleted from the chart) 03/31 16:30 14:58 Home Meds: None; mg2 17:31 16:59 03/31/2019 16:59 Discharged to Home. Impression: Displaced impacted humeral head mg2 fracture; Fall on same level from slipping, tripping and stumbling. Condition is Stable. Forms are Medication Reconciliation Form, Thank You Letter, Antibiotic Education, Prescription Opioid Use. Follow up: Emergency Department; When: As needed; Reason: Worsening of condition. Follow up: Private Physician; When: 2 - 3 days; Reason: Recheck today's complaints, Continuance of care, Re-evaluation by your physician. kb
--- NOTE | 2019-03-31 17:09 | RAD REPORT ---
EXAM DESCRIPTION: RAD - Shoulder Right 2 View - 03/31/2019 4:24 pm CLINICAL HISTORY: Right shoulder pain status post fall FINDINGS: Comminuted moderately displaced fracture involves the right humeral head and neck. No disl ocation seen
[2019-03-31] MEDS ORDERED: CODEINE 30MG/APAP 300MG TAB ONE (17:13)
[2019-03-31 17:49] VITALS: TEMP 98.8
[2019-03-31 17:50] VITALS: BP 137/64; O2SAT 100
== END 2019-03-31 17:31 | disposition home or self-care (01) ==
LOC: ER 14:53
DX: S42.301A Unspecified fracture of shaft of humerus, right arm, initial encounter for closed fracture (principal); W01.198A Fall on same level from slipping, tripping and stumbling with subsequent striking against other object, initial encounter; Y93.89 Activity, other specified; Y92.512 Supermarket, store or market as the place of occurrence of the external cause; Z88.2 Allergy status to sulfonamides
CPT/HCPCS: 70450; 99284

== ENCOUNTER 2019-04-03 15:59 | Emergency (ER) | payer OTHER ==
--- OUTSIDE RECORDS SUMMARY | 2019-04-03 16:02 | XMS REPORT ---
[...] Date Status Dosage System Date Gabapentin ND 02759930951 300 MG Orally Oct 16, Active 1 capsule Three times a 2018 day Magnesium ND 12749537727 300 MG Orally Oct 16, Active 1 capsule Once a day 2018 with a meal Aspirin 81 ND 34073437301 81 MG Orally Active 1 tablet Once a day Tramadol HCl ND 02128927257 50 MG Orally Active 1 tablet every 6 hrs as needed Results No Known Results Summary Purpose eClinicalWorks Submission
--- OUTSIDE RECORDS SUMMARY | 2019-04-03 16:02 | XMS REPORT ---
[...] End Date Status Dosage Aspirin 81 NDC 31887722283 81 MG Orally Once Active 1 tablet a day Results No Known Results Summary Purpose eClinicalWorks Submission
[2019-04-03] MEDS ORDERED: HYDROCODONE/APAP 5/325 MG TAB ONE (17:19)
--- NOTE | 2019-04-03 18:44 | EDPHYS ---
Physician Documentation [facility] Name: Piper Magaña Age: 83 yrs Sex: Female : 1935 Arrival Date: 04/03/2019 Time: 16:00 Bed 8 Private MD: Wilner Lindsay E ED Physician Sancho Rodriguez HPI: 04/03 16:28 This 83 yrs old Female presents to ER via Ambulatory with complaints of Arm rn Swelling. 16:28 The patient or guardian complains of pain. The complaints affect the right bicep and rn dorsal aspect of right forearm. 16:30 Context: The problem was sustained. Onset: The symptoms/episode began/occurred 4 day(s) rn ago. Modifying factors: The symptoms are alleviated by nothing. the symptoms are aggravated by movement. Severity of symptoms: At their worst the symptoms were mild, in the emergency department the symptoms are unchanged. The patient has not experienced similar symptoms in the past. Reports fell a few days ago, came here, diagnosed with humeral fracture, placed in sling, sent home with pain meds, reports now forearm is swollen and hurts, has not been elevating arm. No new injury.. Historical: - Allergies: 16:09 Sulfa (Sulfonamide Antibiotics); hj - PMHx: 16:09 Osteoporosis; spine compression fx; hj - PSHx: 16:09 back surg; hj - Immunization history:: Adult Immunizations up to date. - Social history:: Smoking status: Patient/guardian denies using tobacco. - Family history:: not pertinent. - Ebola Screening: : No symptoms or risks identified at this time. - Hospitalizations: : No recent hospitalization is reported. ROS: 16:32 Constitutional: Negative for fever, chills, and weight loss, MS/Extremity: + right arm rn pain and swelling Neuro: Negative for numbness, tingling, and seizure. Exam: 16:32 Constitutional: This is a well developed, well nourished patient who is awake, alert, rn and in no acute distress. MS/ Extremity: Pulses equal, no cyanosis. Neurovascular intact. + RUE with mild swelling, ecchymosis that has progressed now turning green, and mild edema of forearm. COmpartments soft, distal pulses intact. No sign of infection, + dependent ecchymosis. Vital Signs: 16:09 BP 121 / 64; Pulse 73; Resp 18; Temp 98.5(O); Pulse Ox 99% on R/A; Weight 45.36 kg; hj Height 5 ft. 0 in. (152.40 cm); Pain 5/10; 17:59 BP 142 / 64; Pulse 62; Resp 16; Pulse Ox 97% on R/A; dh3 18:49 BP 137 / 65; Pulse 71; Resp 16; Temp 98.5; Pulse Ox 99% ; bp 16:09 Body Mass Index 19.53 (45.36 kg, 152.40 cm) hj MDM: 16:13 Patient medically screened. rn 17:49 Differential diagnosis: closed fracture, fracture, dependent swelling, edema. Data rn reviewed: vital signs, nurses notes, lab test result(s), radiologic studies, doppler. 17:50 ED course: Has appt with Dr. Cardenas tomorrow. . rn 18:29 Counseling: I had a detailed discussion with the patient and/or guardian regarding: the rn historical points, exam findings, and any diagnostic results supporting the discharge/admit diagnosis, radiology results, the need for outpatient follow up, to return to the emergency department if symptoms worsen or persist or if there are any questions or concerns that arise at home. Response to treatment: the patient's symptoms have mildly improved after treatment, and as a result, I will discharge patient. ED course: Pt with appt tomorrow, ultrasound neg for blood clot, will dc home with instructions to elevate arm.. 18:35 ED course: Per U/S tech verbal report, neg for dvt. Will dc home with f/u with orthotist prosthetist tomorrow, no signs of compartment syndrome, needs to elevate arm. Return precautions given and understood.. 04/03 16:14 Order name: Extremity Venous Uni Ltd rn Administered Medications: 17:22 Drug: [place] 5 mg-325 mg 1 tabs Route: PO; aj 18:41 Follow up: Response: Pain is decreased bp Disposition: 04/03/19 18:43 Discharged to Home. Impression: Edema, unspecified, Displaced transverse fracture of shaft of humerus, right arm. - Condition is Stable. - Discharge Instructions: Edema, Humerus Fracture Treated With Immobilization. - Medication Reconciliation Form, Thank You Letter, Antibiotic Education, Prescription Opioid Use form. - Follow up: Bertin Cardenas MD; When: Tomorrow; Reason: Recheck today's complaints, Re-evaluation by your physician. - Problem is an ongoing problem. - Symptoms have improved. Signatures: Dispatcher [employer] EDRosalba Morales RN Sancho Castellano MD MD rn Joaquin, Henry, RN RN hj Peltier, Brian, ANSHUL RN bp Corrections: (The following items were deleted from the chart) 18:36 16:32 Constitutional: This is a well developed, well nourished patient who is awake, rn alert, and in no acute distress. MS/ Extremity: Pulses equal, no cyanosis. Neurovascular intact. + RUE with mild swelling, ecchymosis that has progressed now turning green, and mild edema of forearm. COmpartments soft, distal pulses intact. No sign of infection, + dependent ecchymosis. rn 18:55 18:43 04/03/2019 18:43 Discharged to Home. Impression: Edema, unspecified; Displaced bp transverse fracture of shaft of humerus, right arm. Condition is Stable. Forms are Medication Reconciliation Form, Thank You Letter, Antibiotic Education, Prescription Opioid Use. Follow up: Bertin Cardenas; When: Tomorrow; Reason: Recheck today's complaints, Re-evaluation by your physician. Problem is an ongoing problem. Symptoms have improved. rn
--- NOTE | 2019-04-03 18:44 | ER ---
Nurse's Notes [facility] Name: Piper Magaña Age: 83 yrs Sex: Female : 1935 Arrival Date: 04/03/2019 Time: 16:00 Bed 8 Private MD: Wilner Lindsay E Diagnosis: Edema, unspecified;Displaced transverse fracture of shaft of humerus, right arm Presentation: 04/03 16:06 Presenting complaint: Child states: she fell fell and fractured R shoulder and hj we have an appt with Dr. Cardenas/ Dr. Mireles, this morning, she noticed her R arm si swollen and there's a red streak area on the arm;. Transition of care: patient was not received from another setting of care. Onset of symptoms was April 03, 2019. Risk Assessment: Do you want to hurt yourself or someone else? Patient reports no desire to harm self or others. Initial Sepsis Screen: Does the patient meet any 2 criteria? No. Patient's initial sepsis screen is negative. Does the patient have a suspected source of infection? No. Patient's initial sepsis screen is negative. Care prior to arrival: None. 16:06 Method Of Arrival: Ambulatory 16:06 Acuity: TRACY 3 hj Triage Assessment: 16:10 General: Appears in no apparent distress. comfortable, Behavior is cooperative, bp appropriate for age, anxious. Pain: Complains of pain in right bicep. EENT: No deficits noted. Neuro: No deficits noted. Cardiovascular: No deficits noted. Respiratory: No deficits noted. GI: No signs and/or symptoms were reported involving the gastrointestinal system. : No signs and/or symptoms were reported regarding the genitourinary system. Derm: No deficits noted. Musculoskeletal: Swelling present in dorsal aspect of right forearm and right bicep. Historical: - Allergies: 16:09 Sulfa (Sulfonamide Antibiotics); hj - PMHx: 16:09 Osteoporosis; spine compression fx; hj - PSHx: 16:09 back surg; hj - Immunization history:: Adult Immunizations up to date. - Social history:: Smoking status: Patient/guardian denies using tobacco. - Family history:: not pertinent. - Ebola Screening: : No symptoms or risks identified at this time. - Hospitalizations: : No recent hospitalization is reported. Screenin:33 Abuse screen: Denies threats or abuse. Denies injuries from another. Nutritional bp screening: No deficits noted. Tuberculosis screening: No symptoms or risk factors identified. Fall Risk None identified. Assessment: 16:10 General: SEE TRIAGE NOTE. bp 17:00 Reassessment: U/S AT B/S. bp 17:25 Reassessment: B/S U/S SUSPENDED PER PT REQUEST. bp 18:07 Reassessment: ALL CURRENT ORDERS COMPLETED, RESULTS PENDING. bp 18:41 Reassessment: U/S COMPLETE, DISPO PENDING. bp 18:49 Reassessment: PT D/C HOME VIA W/C WITH FAMILY, DX WITH EDEMA AND DISPLACED PROXIMAL bp HUMERUS FX. Vital Signs: 16:09 BP 121 / 64; Pulse 73; Resp 18; Temp 98.5(O); Pulse Ox 99% on R/A; Weight 45.36 kg; hj Height 5 ft. 0 in. (152.40 cm); Pain 5/10; 17:59 BP 142 / 64; Pulse 62; Resp 16; Pulse Ox 97% on R/A; dh3 18:49 BP 137 / 65; Pulse 71; Resp 16; Temp 98.5; Pulse Ox 99% ; bp 16:09 Body Mass Index 19.53 (45.36 kg, 152.40 cm) ED Course: 16:00 Patient arrived in ED. mr 16:00 Wilner Lindsay MD is Private Physician. mr 16:08 Triage completed. hj 16:09 Arm band placed on left wrist. hj 16:12 Jorge A Hilliard, ANSHUL is Primary Nurse. bp 16:13 Sancho Rodriguez MD is Attending Physician. rn 16:33 Patient has correct armband on for positive identification. Bed in low position. Call bp light in reach. Side rails up X2. Adult w/ patient. 17:29 Note: pt refused to continue u/s exam due to pain-nurse and dr rodriguez notified. nurse sg3 states pt will receive pain med to return in 1hr to continue exam . 18:43 Bertin Cardenas MD is Referral Physician. rn 18:44 Extremity Venous Uni Ltd US In Process Unspecified. EDMS 18:55 No provider procedures requiring assistance completed. Patient did not have IV access bp during this emergency room visit. Administered Medications: 17:22 Drug: [place] 5 mg-325 mg 1 tabs Route: PO; aj 18:41 Follow up: Response: Pain is decreased bp Outcome: 18:43 Discharge ordered by . rn 18:55 Discharged to home via wheelchair, with family. bp 18:55 Condition: stable 18:55 Discharge instructions given to patient, family, Instructed on discharge instructions, follow up and referral plans. Demonstrated understanding of instructions, follow-up care. 18:55 Patient left the ED. bp Signatures: Dispatcher [employer] EDRosalba Morales, RN Carol Ann Martins Roman, MD MD rn Joaquin, Henry, RN RN hj Herrera, Heather 3 Jorge A Hilliard RN RN Kathi Allison 3 Corrections: (The following items were deleted from the chart) 16:11 16:09 Pulse 73bpm; Resp 18bpm; Pulse Ox 99% RA; Temp 98.5F Oral; 45.36 kg; Height 5 ft. hj 0 in.; BMI: 19.5; Pain 5/10; hj 18:41 17:25 Reassessment: B/S U/S COMPLETED, RESULTS PENDING bp bp
[2019-04-03 19:03] VITALS: TEMP 98.5
[2019-04-03 19:05] VITALS: BP 137/65; O2SAT 99
--- NOTE | 2019-04-03 20:32 | RAD REPORT ---
EXAM DESCRIPTION: US - Extremity Venous Uni Ltd - 04/03/2019 6:43 pm CLINICAL HISTORY: Right arm pain and swelling, recent fracture COMPARISON: None. TECHNIQUE: Real-time sonographic evaluation of the right upper extremity deep venous systems was per formed. FINDINGS: Normal compressibility, flow augmentation, phasic flow and spontaneous flow are identified in the right upper extremity deep venous system. No intraluminal filling defects seen. Internal jugu lar and subclavian veins are normal as well. IMPRESSION: No DVT in the right upper extremity.
== END 2019-04-03 18:55 | disposition home or self-care (01) ==
LOC: ER 15:59
DX: S42.321A Displaced transverse fracture of shaft of humerus, right arm, initial encounter for closed fracture (principal); Z88.2 Allergy status to sulfonamides
CPT/HCPCS: 93971; 99283

== ENCOUNTER 2023-08-11 12:03 | Emergency (ER) | payer OTHER ==
--- OUTSIDE RECORDS SUMMARY | 2023-08-11 12:06 | XMS REPORT | Continuity of Care Document ---
Author Name Unknown Address [address] [facility] [address] [place] [address] [facility] thconnect Address [address] [place] [address] Care Team Providers Care Neonatal Intensive Care Nurse Name Role Phone Zaynab Frye Attending Clinician Unavailable Problems Condition Name Condition Details Condition Category Status Onset Date Resolution Date Last Treatment Date Treating Clinician Comments Source [id number] Closed displaced fracture of left femoral neck with routine healing Problem [facility] [id number] History of breast cancer Problem [facility] [id number] Closed 4-part fracture of proximal end of right humerus, initial encounter Problem [facility] Pathologic al fracture of vertebra Compressio n fracture of body of thoracic vertebra Problem [facility] [id number] Closed 3-part fracture of proximal end of right humerus with routine healing Problem [facility] [id number] Hernia, inguinal, left Problem [facility] [id number] Pain of left hip joint Problem [facility] [id number] Left sided sciatica Problem [facility] [id number] Left hip pain Problem [facility] [id number] Pain in joint of right shoulder Problem [facility] [id number] Frail elderly Problem [facility] [id number] 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 Problem [facility] [id number] Does mobilize using cane Problem [facility] Osteoporos is with current pathologic al fracture with delayed healing, unspecifie d osteoporos is type, subsequent encounter Osteoporos is with current pathologic al fracture with delayed healing, unspecifie d osteoporos is type, subsequent encounter Problem [facility] [id number] Cyst of right ovary Problem [facility] Allergies, Adverse Reactions, Alerts Allergy Name Allergy Type Status Severity Reaction(s) Onset Date Inactive Date Treating Clinician Comments Source 0 Drug allergy Active Unknown [facility] Social History Social Habit Start Date Stop Date Quantity Comments Source History of Tobacco Use [facility] Sex Assigned At [facility] Smoking Status Start Date Stop Date Source Never Smoker [facility] Medications Ordered Medication Name Filled Medication Name Start Date Stop Date Current Medication? Ordering Clinician Indication Dosage Frequency Signature (SIG) Comments Components Source Tylenol with Codeine #3 Tylenol with Codeine #3 2018-05-05 00:00: 00 Yes Bertin Cardenas 1 tablet as needed [facility] Acetaminoph en-Codeine #3 Acetaminoph en-Codeine #3 Yes Bertin Cardenas not defined [facility] Aspirin 81 MG Aspirin 81 MG No 1{table t} QD Aspirin 81 MG Aspirin 81 MG Aspirin 81 MG No 1{table t} QD Aspirin 81 MG Aspirin 81 MG Aspirin 81 MG No 1{table t} QD Aspirin 81 MG Aspirin 81 MG Aspirin 81 MG No 1{table t} QD Aspirin 81 MG Aspirin 81 MG Aspirin 81 MG No 1{table t} QD Aspirin 81 MG Aspirin 81 MG Aspirin 81 MG No 1{table t} QD Aspirin 81 MG Vital Signs Vital Name Observation Time Observation Value Comments Jamie velázquez height 2023-03-25 14:20:00 60 [in_i] [facility] weight 2023-03-25 14:20:00 96 [lb_av] [facility] temperature 2023-03-25 14:20:00 97.2 [degF] Com [facility] bmi 2023-03-25 14:20:00 18.75 kg/m2 Comm on [facility] oximetry 2023-03-25 14:20:00 97 % Commo n [facility] respiratory rate 2023-03-25 14:20:00 16 /min [facility] blood pressure systolic 2023-03-25 14:20:00 128 mm[Hg] [facility] blood pressure diastolic 2023-03-25 14:20:00 68 mm[Hg] [facility] height 2023-03-25 14:20:00 60 [in_i] Commo n [facility] weight 2023-03-25 14:20:00 96 [lb_av] Commo n [facility] temperature 2023-03-25 14:20:00 97.2 [degF] Com [facility] bmi 2023-03-25 14:20:00 18.75 kg/m2 Comm on [facility] oximetry 2023-03-25 14:20:00 97 % Commo n [facility] respiratory rate 2023-03-25 14:20:00 16 /min [facility] blood pressure systolic 2023-03-25 14:20:00 128 mm[Hg] [facility] blood pressure diastolic 2023-03-25 14:20:00 68 mm[Hg] [facility] height 2023-03-17 11:00:00 60 [in_i] Commo n [facility] weight 2023-03-17 11:00:00 94.6 [lb_av] Com [facility] bmi 2023-03-17 11:00:00 18.47 kg/m2 Comm on [facility] oximetry 2023-03-17 11:00:00 93 % Commo n [facility] blood pressure systolic 2023-03-17 11:00:00 118 mm[Hg] [facility] blood pressure diastolic 2023-03-17 11:00:00 64 mm[Hg] [facility] Encounters Start Date/Time End Date/Time Encounter Type Admission Type Attending [facility] Facility Care Department Encounter ID Source 2023-03-13 11:15:00 Outpatient [facility]nab [facility]e [facility] [id number] [facility] 2023-01-23 09:53:00 Outpatient Zaynab Frye [facility] [id number] [facility] 2023-01-20 13:50:00 Outpatient [facility] [id number] [facility] 2022-12-03 10:31:00 Outpatient [facility]nab [facility]e [facility] [id number] [facility] 2022-10-31 11:39:01 Outpatient [facility] [id number] [facility] 2022-09-22 14:02:00 Outpatient [facility]aynab Frye [facility] [id number] [facility] 2022-03-10 12:59:00 Outpatient [facility]e [facility] [id number] [facility] 2022-02-17 12:59:00 Outpatient [facility]aynab Frye [facility] [id number] [facility] 2023-03-26 00:00:00 2023-03-26 00:00:00 (TEL) [facility] [id number] [facility] 2023-03-25 00:00:00 2023-03-25 00:00:00 OFFICE VISIT ESTAB PT LEVEL 3 [facility] [id number] [facility] 2023-03-25 00:00:00 2023-03-25 00:00:00 SUB ANNUAL [facility] VIS[facility] [id number] [facility] 2023-03-20 00:00:00 2023-03-20 00:00:00 (TEL) [facility] [id number] [facility] 2023-03-17 00:00:00 2023-03-17 00:00:00 OFFICE VISIT NEW PT LEVEL 3 [facility] [id number] [facility] 2023-01-20 00:00:00 2023-01-20 00:00:00 (TEL) [facility] [id number] [facility] 2022-09-03 00:00:00 2022-09-03 00:00:00 (TEL) [facility] [id number] [facility] 2019-06-02 14:30:00 2019-06-02 14:30:00 Outpatient [facility] [id number] [facility] 2019-05-04 11:00:00 2019-05-04 11:00:00 [facility] [id number] [facility] 2019-04-04 08:30:00 2019-04-04 08:30:00 Out[facility] [id number] [facility] 2018-06-15 14:30:00 2018-06-15 14:30:00 [facility] [id number] [facility] 2018-05-27 13:30:00 2018-05-27 13:30:00 Outpatient [facility] [id number] [facility] Results Test Description Test Time Test Comments Results Result Co mments Source VITAMIN D,1,24-[id number] 00:00:00* Test Item Value Reference Range Interpretation Comme nts VITAMIN D,1,25-DIHYDROXY (test code = 1649-3) 41.4 PG/ML See_Comment [Automated message] The system which generated this result transmitted reference range: 20.0-82.0 PG/ML. The reference range was not used to interpret this result as normal/abnormal. COMPREHENSIVE METABOLIC [id number] 00:00:00* Test Item Value Reference Range Interpretation Comme nts ALBUMIN (test code = 1751-7) 4.5 G/DL See_Comment [Automated messa ge] The system which generated this result transmitted reference range: 3.5-5.2 G/DL. The reference range was not used to interpret this result as normal/abnormal. ALKALINE PHOSPHATASE (test code = 6768-6) 105 U/L See_Comment [Automated message] The system which generated this result transmitted reference range: 40-142 U/L. The reference range was not used to interpret this result as normal/abnormal. BILIRUBIN, TOTAL (test code = 1975-2) 0.5 MG/DL See_Comment [Automated message] The system which generated this result transmitted reference range: <=1.2 MG/DL. The reference range was not used to interpret this result as normal/abnormal. BUN (test code = 3094-0) 19 MG/DL See_Comment [Automated messa ge] The system which generated this result transmitted reference range: 8-23 MG/DL. The reference range was not used to interpret this result as normal/abnormal. CALCIUM (test code = 04296-5) 9.6 MG/DL See_Comment [Automated messa ge] The system which generated this result transmitted reference range: 8.5-10.5 MG/DL. The reference range was not used to interpret this result as normal/abnormal. CALC A/G RATIO (test code = 1759-0) 1.5 RATIO See_Comment [Automated messa ge] The system which generated this result transmitted reference range: 1.0-2.6 RATIO. The reference range was not used to interpret this result as normal/abnormal. CALC BUN/CREAT (test code = 3097-3) 20 RATIO See_Comment [Automated messa ge] The system which generated this result transmitted reference range: 6-28 RATIO. The reference range was not used to interpret this result as normal/abnormal. CALC GLOBULIN (test code = 79258-6) 3.0 G/DL See_Comment [Automated messa ge] The system which generated this result transmitted reference range: 1.9-3.7 G/DL. The reference range was not used to interpret this result as normal/abnormal. CARBON DIOXIDE (test code = 1963-8) 24 MEQ/L See_Comment [Automated messa ge] The system which generated this result transmitted reference range: 19-31 MEQ/L. The reference range was not used to interpret this result as normal/abnormal. CHLORIDE (test code = 2075-0) 104 MEQ/L See_Comment [Automated messa ge] The system which generated this result transmitted reference range: 95-107 MEQ/L. The reference range was not used to interpret this result as normal/abnormal. CREATININE (test code = 2160-0) 0.97 MG/DL See_Comment [Automated messa ge] The system which generated this result transmitted reference range: 0.60-1.30 MG/DL. The reference range was not used to interpret this result as normal/abnormal. eGFR (2020 CKD-EPI) (test code = 05091-7) 56 ML/MIN/1.73 See_Comment L [Automated messa ge] The system which generated this result transmitted reference range: >60 ML/MIN/1.73. The reference range was not used to interpret this result as normal/abnormal. GLUCOSE (test code = 1558-6) 94 MG/DL See_Comment [Automated messa ge] The system which generated this result transmitted reference range: 70-99 MG/DL. The reference range was not used to interpret this result as normal/abnormal. POTASSIUM (test code = 2823-3) 4.4 MEQ/L See_Comment [Automated messa ge] The system which generated this result transmitted reference range: 3.5-5.4 MEQ/L. The reference range was not used to interpret this result as normal/abnormal. PROTEIN, TOTAL (test code = 2885-2) 7.5 G/DL See_Comment [Automated messa ge] The system which generated this result transmitted reference range: 6.1-8.3 G/DL. The reference range was not used to interpret this result as normal/abnormal. AST (test code = 1920-8) 23 U/L See_Comment [Automated messa ge] The system which generated this result transmitted reference range: 9-40 U/L. The reference range was not used to interpret this result as normal/abnormal. ALT (test code = 1742-6) 9 U/L See_Comment [Automated [employer]] The system which generated this result transmitted reference range: 5-40 U/L. The reference range was not used to interpret this result as normal/abnormal. SODIUM (test code = 2951-2) 138 MEQ/L See_Comment [Automated [employer]] The system which generated this result transmitted reference range: 133-146 MEQ/L. The reference range was not used to interpret this result as normal/abnormal.
[2023-08-11 13:30] LABS: Absolute Lymphocytes (CBC) 1.6 K/uL (0.7-4.9); Hematocrit 32.9 % (36.0-45.0); Lymphocytes % 15.3 % (15.3-44.8); MCV 97.2 fL (80-100); MPV 7.8 fL (7.6-11.3); Platelets 338 thou/uL (152-406); RBC Red Blood Cell Count 3.38 M/uL (3.86-4.86)
[2023-08-11 13:35] LABS: Protime INR 1.06
[2023-08-11 13:45] LABS: Specific Gravity 1.005 (1.005-1.030); Urine Bacteria <20 /HPF (<20); Urine Bilirubin NEGATIVE (Negative); Urine Blood 2+ (Negative); Urine Clarity Turbid (Clear); Urine Color Colorless (Yellow); Urine Glucose NEGATIVE (Negative); Urine Mucus Slight /HPF (None Seen); Urine Protein NEGATIVE (Negative); Urine Urobilinogen Normal (Normal)
[2023-08-11 13:47] LABS: Albumin 3.3 g/dL (3.4-5.0); Bilirubin Total 0.6 mg/dL (0.2-1.0); Potassium 4.4 mEq/L (3.5-5.1); Protein, Total 7.7 g/dL (6.4-8.2)
--- NOTE | 2023-08-11 15:32 | ER ---
Nurse's Notes [facility] Name: Piper Magaña Age: 88 yrs Sex: Female : 1935 Arrival Date: 08/11/2023 Time: 12:03 Bed 11 Private MD: Diagnosis: UTI/ Urinary tract infection, site not specified;Gross hematuria;Dysuria Presentation: 08/11 12:31 Chief complaint: Patient states: Pt c/o dysuria, hematuria, frequency and urgency with cm10 urination x 2 days. Pt denies abdominal/flank pain, fever/chills. Coronavirus screen: Vaccine status: Patient reports being unvaccinated. Client denies travel out of the [place] in the last 14 days. At this time, the client does not indicate any symptoms associated with coronavirus-19. Ebola Screen: Patient negative for fever greater than or equal to 101.5 degrees Fahrenheit, and additional compatible Ebola Virus Disease symptoms Patient denies exposure to infectious person. Patient denies travel to an Ebola-affected area in the 21 days before illness onset. No symptoms or risks identified at this time. Initial Sepsis Screen: Does the patient meet any 2 criteria? No. Patient's initial sepsis screen is negative. Does the patient have a suspected source of infection? No. Patient's initial sepsis screen is negative. Risk Assessment: Do you want to hurt yourself or someone else?. Onset of symptoms. 12:31 Method Of Arrival: Ambulatory cm10 12:31 Acuity: TRACY 3 cm10 Historical: - Allergies: 12:34 Sulfa (Sulfonamide Antibiotics); cm10 - PMHx: 12:34 breast cancer; Osteoporosis; spine compression fx; cm10 - Immunization history:: Adult Immunizations unknown. - Social history:: Smoking status: Patient denies any tobacco usage or history of. Screenin:45 [facility] ED Fall Risk Assessment (Adult) History of falling in the last 3 months, me1 including since admission No falls in past 3 months (0 pts) Confusion or Disorientation No (0 pts) Intoxicated or Sedated No (0 pts) Impaired Gait No (0 pts) Mobility Assist Device Used Yes (1 pt) Altered Elimination No (0 pt) Score/Fall Risk Level 0 - 2 = Low Risk Maintained a safe environment, Provided non-skid footwear, Hourly rounding (assess needs \T\ fall precautionary measures) done. Abuse screen: Denies threats or abuse. Nutritional screening: No deficits noted. Tuberculosis screening: No symptoms or risk factors identified. Assessment: 12:45 General: Appears comfortable, well groomed, well developed, well nourished, Behavior is me1 calm, cooperative, appropriate for age, Reports Pt c/o dysuria, hematuria, frequency and urgency with urination x 2 days. Pt denies abdominal/flank pain, fever/chills. Pain: Denies pain. Neuro: Level of Consciousness is awake, alert, obeys commands, Oriented to person, place, time, situation, Appropriate for age. Cardiovascular: Capillary refill < 3 seconds Patient's skin is warm and dry. Respiratory: Airway is patent Respiratory effort is even, unlabored, Respiratory pattern is regular, symmetrical. : Reports burning with urination, since 2 days ago incontinence, urinary frequency, hematuria. Vital Signs: 12:31 BP 127 / 92; Pulse 117; Resp 18; Temp 97.5(TE); Pulse Ox 99% on R/A; Weight 43.54 kg; cm10 Height 5 ft. 0 in. ; Pain 0/10; 12:39 BP 158 / 77; Pulse 75; Resp 16; Pulse Ox 98% on R/A; me1 13:15 BP 149 / 96; Pulse 78; Resp 17; Pulse Ox 99% on R/A; me1 14:28 BP 139 / 56; Pulse 72; Resp 18; Pulse Ox 99% on R/A; me1 14:30 BP 147 / 80; Pulse 69; Resp 16; Pulse Ox 100% on R/A; me1 15:55 BP 141 / 70; Pulse 71; Resp 16; Pulse Ox 98% on R/A; me1 12:31 Body Mass Index 18.75 (43.54 kg, 152.4 cm) cm10 12:31 Pain Scale: Adult cm10 ED Course: 12:05 Patient arrived in ED. rg4 12:06 Wicho Puentes DO is Attending Physician. ms3 12:34 Triage completed. cm10 12:36 Arm band placed on Patient placed in an exam room, on a stretcher. cm10 12:42 Linda Ricci, RN is Primary Nurse. me1 12:45 Patient has correct armband on for positive identification. Bed in low position. Call me1 light in reach. Side rails up X 1. Provided Education on: POC. Verbalized understanding. . 12:45 No provider procedures requiring assistance completed. me1 13:19 Inserted saline lock: 22 gauge in left antecubital area, using aseptic technique. me1 13:19 CBC with Diff Sent. me1 13:19 CMP Sent. me1 13:20 Lactate w/ 2H reflex if indic. Sent. me1 13:20 Protime (+inr) Sent. me1 13:20 Ptt, Activated Sent. me1 13:37 EKG done, by ED staff. tm3 16:02 IV discontinued, intact, bleeding controlled, No redness/swelling at site. Pressure me1 dressing applied. Administered Medications: No medications were administered Medication: 12:45 VIS not applicable for this client. me1 Outcome: 15:31 Discharge ordered by MD. ms3 16:01 Discharged to home ambulatory, with friend, me1 16:01 Condition: stable 16:01 Discharge instructions given to patient, friend, Instructed on discharge instructions, follow up and referral plans. medication usage, Demonstrated understanding of instructions, follow-up care, medications, Prescriptions given X 1, 16:02 Patient left the ED. me1 Signatures: Clay Cole tm3 Halina Tapia rg4 Wicho Puentes DO DO ms3 Jaqueline Osorio, RN RN cm10 Linda Ricci RN RN me1 Corrections: (The following items were deleted from the chart) 12:55 12:31 Chief complaint: Patient states: Pt c/o dysuria, hematuria, frequency and urgency me1 with urination x 2 days. Pt denies abdominal/flank pain, fever/chills. cm10 15:59 12:31 Chief complaint: Patient states: Pt c/o dysuria, hematuria, frequency and urgency me1 with urination x 2 days. Pt denies abdominal/flank pain, fever/chills. me1
--- NOTE | 2023-08-11 15:32 | EDPHYS ---
Physician Documentation [facility] Name: Piper Magaña Age: 88 yrs Sex: Female : 1935 Arrival Date: 08/11/2023 Time: 12:03 Bed 11 Private MD: ED Physician Wicho Puentes HPI: 08/11 13:54 This 88 yrs old Female presents to ER via Ambulatory with complaints of Urinary ms3 Problem, Low Back Pain. 13:54 88-year-old female with past medical history of breast cancer, osteoporosis, pression ms3 fracture presents to the emergency department for dysuria. Patient denies pain. Patient states the pain is worse with urination and goes to a 9/10. Patient states this has been ongoing for 2 days. Fevers, chills, nausea, vomiting are denied. Historical: - Allergies: 12:34 Sulfa (Sulfonamide Antibiotics); cm10 - PMHx: 12:34 breast cancer; Osteoporosis; spine compression fx; cm10 - Immunization history:: Adult Immunizations unknown. - Social history:: Smoking status: Patient denies any tobacco usage or history of. ROS: 13:54 Constitutional: Negative for fever, and chills. Cardiovascular: Negative for chest ms3 pain, and palpitations. Respiratory: Negative for shortness of breath, cough, wheezing, and pleuritic chest pain, Abdomen/GI: Negative for abdominal pain, nausea, vomiting, diarrhea, and constipation, 13:54 : Positive for burning with urination, Exam: 13:54 Constitutional: This is a well developed, well nourished patient who is awake, alert, ms3 and in no acute distress. Head/Face: Normocephalic, atraumatic. Neck: Trachea midline, no cervical lymphadenopathy. Supple, full range of motion without nuchal rigidity, or vertebral point tenderness. No Meningismus. Chest/axilla: Normal chest wall appearance and motion. Nontender with no deformity. Cardiovascular: Regular rate and rhythm with a normal S1 and S2. No gallops, murmurs, or rubs. Normal PMI, no JVD. No pulse deficits. Respiratory: Lungs have equal breath sounds bilaterally, clear to auscultation and percussion. No rales, rhonchi or wheezes noted. No increased work of breathing, no retractions or nasal flaring. Abdomen/GI: Soft, non-tender, with normal bowel sounds. No distension or tympany. No guarding or rebound. No evidence of tenderness throughout. Skin: Warm, dry with normal turgor. Normal color with no rashes, no lesions, and no evidence of cellulitis. MS/ Extremity: Pulses equal, no cyanosis. Neurovascular intact. Full, normal range of motion. 13:54 ECG was reviewed by the Attending Physician. ms3 Vital Signs: 12:31 BP 127 / 92; Pulse 117; Resp 18; Temp 97.5(TE); Pulse Ox 99% on R/A; Weight 43.54 kg; cm10 Height 5 ft. 0 in. ; Pain 0/10; 12:39 BP 158 / 77; Pulse 75; Resp 16; Pulse Ox 98% on R/A; me1 13:15 BP 149 / 96; Pulse 78; Resp 17; Pulse Ox 99% on R/A; me1 14:28 BP 139 / 56; Pulse 72; Resp 18; Pulse Ox 99% on R/A; me1 14:30 BP 147 / 80; Pulse 69; Resp 16; Pulse Ox 100% on R/A; me1 15:55 BP 141 / 70; Pulse 71; Resp 16; Pulse Ox 98% on R/A; me1 12:31 Body Mass Index 18.75 (43.54 kg, 152.4 cm) cm10 12:31 Pain Scale: Adult cm10 MDM: 12:50 Patient medically screened. ms3 15:32 Differential diagnosis: UTI, muscle spasm. Data reviewed: vital signs, nurses notes, ms3 lab test result(s), and as a result, I will discharge patient. Counseling: I had a detailed discussion with the patient and/or guardian regarding the historical points, exam findings, and any diagnostic results supporting the discharge/admit diagnosis, lab results, radiology results, the need for outpatient follow up, to return to the emergency department if symptoms worsen or persist or if there are any questions or concerns that arise at home. Special discussion: I discussed with the patient/guardian in detail that at this point there is no indication for admission to the hospital. It is understood, however, that if the symptoms persist or worsen the patient needs to return immediately for re-evaluation. ED course: Discussed labs with patient. Patient given prescription for Vantin 200 mg twice daily x 10 days. Patient to follow-up with her primary care physician in 2 to 3 days. Patient understands and agrees with plan. All questions were answered. Return precautions discussed to include worsening symptoms, or any other concerns. 08/11 12:50 Order name: Urinalysis w/ reflexes; Complete Time: 15:11 ms3 08/11 12:50 Order name: Blood Culture Adult (2) ms3 08/11 12:50 Order name: CBC with Diff; Complete Time: 15:11 ms3 08/11 12:50 Order name: CMP; Complete Time: 15:11 ms3 08/11 12:50 Order name: Lactate w/ 2H reflex if indic.; Complete Time: 15:11 ms3 08/11 12:50 Order name: Protime (+inr); Complete Time: 15:11 ms3 08/11 12:50 Order name: Ptt, Activated; Complete Time: 15:11 ms3 08/11 13:49 Order name: Urine Culture EDMS 08/11 12:50 Order name: EKG; Complete Time: 12:51 ms3 08/11 12:50 Order name: Accucheck ms3 08/11 12:50 Order name: Cardiac monitoring; Complete Time: 14:06 ms3 08/11 12:50 Order name: EKG - Nurse/Tech; Complete Time: 14:06 ms3 08/11 12:50 Order name: IV Saline Lock - Large Bore; Complete Time: 13:19 ms3 08/11 12:50 Order name: Labs collected and sent; Complete Time: 13:19 ms3 08/11 12:50 Order name: O2 Per Protocol; Complete Time: 13:19 ms3 08/11 12:50 Order name: O2 Sat Monitoring; Complete Time: 13:19 ms3 08/11 12:50 Order name: Vital Signs; Complete Time: 13:19 ms3 EC:54 Rate is 72 beats/min. Rhythm is regular. QRS [place] is Normal. VT interval is normal. QRS ms3 interval is normal. QT interval is normal. Clinical impression: NSR w/ Non-specific ST/T Changes. Interpreted by me. Reviewed by me. Administered Medications: No medications were administered Disposition Summary: 08/11/23 15:31 Discharge Ordered Notes: Location: Home ms3 Condition: Stable ms3 Diagnosis - UTI/ Urinary tract infection, site not specified ms3 - Gross hematuria ms3 - Dysuria ms3 Followup: ms3 - With: Private Physician - When: 2 - 3 days - Reason: Recheck today's complaints Discharge Instructions: - Discharge Summary Sheet ms3 - Dysuria ms3 - Urinary Tract Infection, Adult ms3 Forms: - Medication Reconciliation Form ms3 - Thank You Letter ms3 - Antibiotic Education ms3 - Prescription Opioid Use ms3 - Patient Portal Instructions ms3 - Leadership Thank You Letter ms3 Prescriptions: - cefpodoxime 200 mg Oral tablet - take 1 tablet ORAL route every 12 hours with food; 20 tablet; Refills: 0, ms3 Product Selection Permitted Signatures: Dispatcher [employer] EDWicho Rizo DO DO ms3 Jaqueline Osorio RN RN cm10
[2023-08-11 16:24] VITALS: TEMP 97.5
[2023-08-11 16:30] VITALS: BP 141/70; O2SAT 98
--- NOTE | 2023-08-12 13:05 | EKG ---
Test Date: 2023-08-11 Test Time: 13:31:48 Retreader: TM MEASUREMENT RESULTS: Intervals: Rate: 72 UT: 128 QRSD: 86 QT: 470 QTc: 514 [place]: P: 65 UT: 128 QRS: 80 T: 72 INTERPRETIVE STATEMENTS: Sinus rhythm with premature atrial complexes Septal infarct, age undetermined Prolonged QT Abnormal ECG Compared to ECG 05/04/2018 09:45:35 Myocardial infarct finding now present Prolonged QT interval now present Electronically Signed On 08-12-23 13:03:59 SALES PRODUCT MANAGER by Daryl Pan
== END 2023-08-11 16:02 | disposition home or self-care (01) ==
LOC: ER 12:03
DX: N39.0 Urinary tract infection, site not specified (principal); R31.0 Gross hematuria; Z88.2 Allergy status to sulfonamides
CPT/HCPCS: 36415; 80053; 81001; 83605; 85025; 85610; 85730; 87040; 87086; 87088; 93005; 99284